=== PATIENT | male | born 1950 | race Caucasian/White ===

== ENCOUNTER 2017-08-11 09:02 | Observation (INO) | payer MEDICARE, SELFPAY ==
[2017-08-11] VITALS (13 sets, daily range): BP systolic 132–177; BP diastolic 73–86; PULSE 38–52; RESP 11–16; TEMP 36.7–37; O2SAT 95–100; BMI 30.8; BMI 30.6
--- NOTE | 2017-08-11 09:15 | EKG12_ITS ---
Test Reason : REPEAT Blood Pressure : / mmHG Vent. Rate : 040 BPM Atrial Rate : 040 BPM P-R Int : 182 ms QRS Dur : 096 ms QT Int : 512 ms P-R-T Axes : 039 007 106 degrees QTc Int : 417 ms Marked sinus bradycardia ST & T wave abnormality, consider lateral ischemia Abnormal ECG Confirmed by LAZ HA, CHEYANNE ([id number]), order editor DONNELL CALVO ([id number]) on 08/12/2017 1:48:17 PM Referred By: KOJO Confirmed By:CHEYANNE NESBITT MD
--- NOTE | 2017-08-11 09:20 | RAD_ITS ---
STUDY: X-RAY CHEST REASON FOR EXAM: Male, 67 years old. Chest pain. TECHNIQUE: Single AP portable view of the chest. COMPARISON: None. FINDINGS: EKG electrodes are seen. The lungs are clear and expanded. There is no demonstrated pleural abnormality. Normal size heart. Normal mediastinum and rick. Normal visualized pulmonary arteries. Normal visualized aortic arch and descending thoracic aorta. Normal visualized thoracic spine. Normal visualized ribs, clavicles, and shoulders. There is no demonstrated abnormality of the visualized soft tissue structures of the upper abdomen. RAD/Chest 1 View (Portable) IMPRESSION: Normal x-ray examination of the chest. Electronically Signed: Christian Taylor MD at 10:08 EST Tel [phone], Service support ,
[2017-08-11] MEDS: Aspirin 81 MG TAB.CHEW 324 MG PO (09:23)
[2017-08-11] MEDS: 0.9% Normal Saline 1,000 ML 150 ML IV ×3 (09:23→23:27)
[2017-08-11 09:28] LABS: Absolute Lymphocyte Count 1.91 X10^3/ul (0.83-4.51); Absolute Neutrophil Count 4.3 X10^3/uL (2.0-7.7); Basophil# 0.02 X10^3/uL; Basophil% 0.3 % (0-1); Eosinophil# 0.61 X10^3/uL; Eosinophils% 7.7 % (0-5); Hematocrit 44.8 % (40-54); Hemoglobin 15.3 g/dl (13.0-16.5); Lymphocyte # 1.91 X10^3/ul (4.0); Lymphocyte % 24.2 % (19-41); Mean Corp Hgb Conc 34.2 g/gl (32-36); Mean Corpuscular Hgb 31.5 pg (27.0-32.0); Mean Corpuscular Volume 92.4 fL (80-94); Mean Platelet Vol. 10.1 fl (6.2-12.0); Monocyte# 1.02 X10^3/uL; Monocyte% 12.9 % (0-10); Neutrophil % 54.6 % (47-70); Platelet Count 254 K/mm3 (150-450); RBC Distribution Width SD 46.7 fl (35.1-43.9); Red Blood Count 4.85 M/mm3 (4.6-6.2); White Blood Count 7.9 K/mm3 (4.4-11.0)
[2017-08-11] MEDS: TICAGRELOR 90 MG TABLET 180 MG PO (09:33)
[2017-08-11 09:36] LABS: POSITIVE COUNT NO; POSITIVE DIFFERENTIAL NO; POSITIVE MORPHOLOGY NO
[2017-08-11 09:38] LABS: Anion Gap 9 (5-15); BUN 23 mg/dL (7-18); BUN/Creat Ratio 24.3 RATIO (10-20); Calcium,Total 8.9 mg/dL (8.5-10.1); Chloride 101 mmol/L (98-107); Creatinine, Serum 0.95 mg/dL (0.70-1.30); EST Glomerular Filtration Rate 84 mL/min (>60); Est Glom Filt Rate - Afr Amer 102 mL/min (>60); Estimated Creatinine Clearance 75.45 ml/min; Glucose 104 mg/dL (74-106); Potassium 4.2 mmol/L (3.5-5.1); Sodium Level 137 mmol/L (136-145)
[2017-08-11] MEDS: Heparin Injection 5,000 UNITS/ML Syringe 4000 UNITS IV (09:49)
--- NOTE | 2017-08-11 10:01 | ED.VISSUMM ---
- ER Visit Summary Date of Service: 08/11/17 Chief Complaint: [Chest pain] History of Present Illness: The patient is a 67 M [presents to the emergency department from Dr. Collazo's office for complaint of chest pain that woke him up from sleep around 2 AM. Patient thought it was indigestion and took Tums and some milk and was able to fall back asleep. Initially his pain was a 9 out of 10. Patient currently rates his pain as a 1 out of 10. Patient was noted to have abnormal EKG changes in his doctor's office this morning therefore was sent to the emergency department. Patient states when the pain initially started he felt short of breath and sweaty. Patient did feel nauseated but not currently. Patient tells me he had a heart catheterization about 5 years ago that showed about a 30% stenosis in 1 of his arteries but no type of intervention was undertaken at that time. She denies any recent travel or surgery.] Physical Examination: [HEENT-PERRLA, EOMI. Cranial nerves II through XII grossly intact. TMs clear. Mucous membranes moist. No adenopathy. Cardiovascular-regular rate and rhythm without murmur or ectopy I am unable to reproduce patient's pain with palpation. Lungs-clear to auscultation, chest wall stable without crepitus or subcu emphysema Abdomen-normoactive bowel sounds, soft, nontender, no rebound or rigidity, no peritoneal signs. Extremities-intact ?4, normal range of motion, normal pulses, atraumatic] Test Results: [EKG obtained on arrival showed a sinus rhythm with a ventricular rate of 46 bpm. Patient had subtle ST elevation in V2 and V3 of less than a millimeter. Patient had flipped T waves in V5, V6, 1, and aVL. The changes are new when compared with prior EKG from 2012 and 2013. CBC with differential was unremarkable. Chemistries unremarkable. Troponin was less than 0.02. Chest x-ray showed nothing acute.] Emergency Department Course and Treatment: [Patient received aspirin in the emergency department as well as sublingual nitroglycerin. I discussed the case with Dr. Ari Lucero who evaluated the EKG and asked that I start patient on heparin IV as well as Brilinta.] Treatment Plan: [Admit for further workup and evaluation. Patient had a sed rate ordered as well.] Disposition: [Admit] Impression: [Chest pain-rule out acute coronary syndrome] This note was generated with [employer] dictation software. It may contain incorrect words, spelling, and punctuation that were not noted in review of the chart prior to signing ED Disposition - Plan for ED Patient: Chief Complaint: Chest Pain Referrals: Les Cisse MD [Primary Care Provider] -
--- NOTE | 2017-08-11 10:19 | NURSING ---
DR SANTY VARMA
--- NOTE | 2017-08-11 10:24 | NURSING ---
109 OBS CP SANTY
[2017-08-11 10:39] LABS: Erythrocyte Sedimentation Rate 21 mm/hr (0-20)
--- NOTE | 2017-08-11 11:27 | ECHOD_ITS ---
Reason For Study: chest pain Procedure This was a 2D Doppler, Color Flow transthoracic echocardiogram. Exam performed portable in patient room. Left Ventricle Mild concentric left ventricular hypertrophy. The estimated ejection fraction is 65 %. No regional wall motion abnormalities noted. Right Ventricle Normal size and thickness. Normal systolic function. Atria The left atrium is severely enlarged. Normal right atrium. Normal atrial septum. Mitral Valve Mild diffuse mitral valve thickening. Mild (1+) eccentric mitral valve insufficiency. Tricuspid Valve Normal tricuspid valve. Trivial tricuspid valve insufficiency. Right ventricular systolic pressure estimated to be 26 mmHg. Aortic Valve Normal aortic valve. Trisinus/trileaflet aortic valve. Pulmonic Valve Normal pulmonic valve. Trivial eccentric pulmonic valve insufficiency. Great Vessels Normal aortic root. Normal arch. Normal inferior vena cava. Inferior vena cava collapse with sniff. Pericardium/Pleural No pericardial effusion. MMode/2D Measurements & Calculations LVIDd: 5.2 cm IVSd: 1.4 cm Ao root diam: 3.2 cm LVIDs: 3.4 cm LVPWd: 1.4 cm LA dimension: 4.9 cm RVDd: 3.0 cm FS: 34.3 % LAV(MOD-bp): 106.6 ml LA A4 area: 31.2 cm2 RA A4 area: 14.9 cm2 LAV(MOD-bp) Indexed: 51.1 ml/m2 LAV(MOD-sp2): 95.2 ml LAV(MOD-sp4): 115.1 ml Doppler Measurements & Calculations MV E max ren: 70.3 cm/sec Lat Peak E' Ren: 8.3 cm/sec Med Peak E' Ren: 6.6 cm/sec MV A max ren: 66.0 cm/sec E/E' lat: 8.5 E/E' med: 10.7 MV E/A: 1.1 Ao V2 max: 170.8 cm/sec LV V1 max: 108.9 cm/sec PA V2 max: 111.3 cm/sec Ao max P.7 mmHg LV V1 max P.7 mmHg Ao V2 mean: 112.6 cm/sec Ao mean P.7 mmHg Ao V2 VTI: 36.6 cm TR max ren: 234.5 cm/sec TR max P.0 mmHg Interpretation Summary Mild concentric left ventricular hypertrophy. The estimated ejection fraction is 65 %. The left atrium is severely enlarged. Mild (1+) eccentric mitral valve insufficiency. Trivial tricuspid valve insufficiency. Right ventricular systolic pressure estimated to be 26 mmHg. There is no comparison study available. Ordering Physician: Ari Lucero Referring Physician: Les Cisse Performed By: Shaina Sepulveda, MT, RVT
--- NOTE | 2017-08-11 11:27 | PCM.CONS.C ---
Problem List (1) Chest pain Status: Acute (2) Abnormal EKG Status: Acute Reason for Consult Date of Consultation: 08/11/17 Reason for Consultation: Abnormal EKG, chest pain History of Present Illness: The patient is a 67 year old M, patient of Dr. Roman, followed by Dr. Harper, who previously underwent a left her catheterization at the [facility] approximately 5 years ago according to the patient, and reportedly had a 30% narrowing in some artery of unknown type. Patient's symptoms at that time were chest burning sensation. Patient remains symptom-free over the last 5 years. He is a nondiabetic, smoke cigars, chews tobacco, and drinks 1 bourbon every night. 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 Patient was doing well up until around 2 AM last night when he developed a substernal chest burning sensation, which was nonradiating with associated diaphoresis and shortness of breath. Patient took a Tums and a glass of milk and his symptoms improved but did not completely resolve. There remained persistent and he went to his primary care doctor this morning around 8 AM. An EKG was performed which showed normal sinus rhythm with subtle anteroseptal ST segment elevation, with lateral T-wave inversion which appear to be new from a previous EKG. He was referred immediately to the [facility] ER where a repeat EKG confirmed the office EKG findings. Patient was given sublingual nitroglycerin and his pain markedly improved. His initial troponin was negative. On further history the patient denies any exertional chest pain, angina, during his activities prior to this. He recently returned from a long car ride approximately 1 week ago traveling around [place]. He does not formally exercise. In the emergency room the patient was given 4 baby aspirin, Brilinta 180 mg ?1, heparin 4000 units ?1. After talking with the patient in the ER, it appears that his pain is epigastric in nature, and has gastritis-like quality. Echo is pending. [] Past Medical History Allergies/Adverse Reactions: Allergies No Known Allergies Allergy (Verified 02/18/17 10:52) Home Medications: Ambulatory Orders Medication Instructions Recorded Hydrochlorothiazide 25 mg PO DAILY 06/13/13 Montelukast [Singulair] 10 mg PO QHS 06/13/13 Nebivolol HCl [Bystolic] 20 mg PO DAILY 06/13/13 Aspirin [Aspirin, Baby] 81 mg PO DAILY@0800 02/18/17 Bisoprolol Fumarate [Zebeta] 10 mg PO DAILY 02/18/17 Naproxen Sodium [Aleve] 220 mg PO DAILY 02/18/17 Pravastatin Sodium [Pravachol] 10 mg PO QHS 02/18/17 Sildenafil Citrate [Sildenafil] 20 mg PO DAILY PRN 02/18/17 Valsartan [Diovan] 320 mg PO DAILY 02/18/17 Gluc/Chondr-MSM#7/C/Swapnil/[place] 2 tab PO DAILY 08/11/17 [Eql Glucosam-Chondro Complx Tb] Nitroglycerin [Nitrostat] 0.4 mg SUBLINGUAL Q5M PRN 08/11/17 Surgical History: no surgical history Smoking Status: Current every day smoker Review of Systems - Review of Systems General: Denies: Fever, Night Sweats, Fatigue Cardiovascular: Reports: Chest Discomfort at Rest, Chest Heaviness, Shortness of Breath at Rest. Denies: Chest Discomfort, Shortness of Breath, Orthopnea, PND, Peripheral Edema, Palpitations, Lightheadedness, Dizziness, Near Syncope, Syncope Respiratory: Denies: Cough, Sputum Production, Hemoptysis Gastrointestinal: Denies: Hematemesis, Hematochezia, Melena Genitourinary: Denies: Dysuria, Hematuria Skin: Denies: Rash Subjectve: Patient laying in bed, no acute distress. Objective: Vital Signs Temp Pulse Resp BP Pulse Ox 98.2 F 40 L 16 133/73 H 99 08/11/17 09:03 08/11/17 09:54 08/11/17 09:54 08/11/17 09:54 08/11/17 09:54 Weight: 207 lb 7.28 oz Body Mass Index (BMI) 30.6 General: Awake, Alert, Oriented x 3 HEENT: PERRL, EOMI, Sclera Non Icteric Neck: Supple, Good ROM, No Lymph Node Enlargement Lungs: Clear to auscultation Cardiovascular: Regular Rhythm, Normal S1, Normal S2, No Murmurs, No Rubs, No Gallops Rhythm: EKG: As above ECHO: Pending Stress Test: Cardiac Cath: PCI: CT Surgery: Holter monitor: EPS: PPM: CXR: Chest CT Scan: Assessment/Plan 1. Chest pain: The patient presents with new onset sub-gastric xiphoid type chest pain, which has gastritis qualities to it. His initial troponin is negative, but his EKG demonstrates normal sinus rhythm with subtle anterolateral ST and T-wave changes. I recommended that he receive baby aspirin ?4, Brilinta 180 mg ?1, and 4000 units of IV heparin in anticipation for possible urgent catheterization. In addition I recommend he be admitted to PCU telemetry floor as he is chest pain-free now. Recommend ruling him out for troponins ?3, and if negative would recommend a walking treadmill echocardiogram tomorrow morning. If this is grossly abnormal, he may require diagnostic coronary angiogram. In addition I recommend that he be started on PPI therapy as he may have gastritis due to his alcohol and tobacco consumption. His symptoms appear to improve with milk and Tums last evening. Is also possible the patient's symptoms may be gallbladder in origin as well. In addition I recommend we obtain a sed rate and at bedtime CRP to determine if patient has pericarditis as a result of inflammation that could explain his symptoms and EKG changes. If the patient's troponins become abnormal, I would not recommend stress testing and would proceed with left her catheterization tomorrow morning. 2. Hyperlipidemia: Recommend obtaining a fasting lipid profile. Given his previous coronary disease he requires LDL reduction. Continue statin based medications. 3. Sinus bradycardia: The patient is on bisoprolol therapy which is appropriate. 4. Discussed with Dr. Cruz. Thank you very much for the opportunity to precipitate in the cardiac care of your patient. Consultation time took place between 10 AM and 10:30 AM. Code Visit Inpatient E&M: 94010 Init Hosp L2
--- NOTE | 2017-08-11 11:35 | CON.PCM_ITS ---
Problem List (1) Chest pain Status: Acute (2) Abnormal EKG Status: Acute Reason for Consult Date of Consultation: 08/11/17 Reason for Consultation: Abnormal EKG, chest pain History of Present Illness: The patient is a 67 year old M, patient of Dr. Roman, followed by Dr. aHrper, who previously underwent a left her catheterization at the [facility] approximately 5 years ago according to the patient, and reportedly had a 30% narrowing in some artery of unknown type. Patient's symptoms at that time were chest burning sensation. Patient remains symptom-free over the last 5 years. He is a nondiabetic, smoke cigars, chews tobacco, and drinks 1 bourbon every night. 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 Patient was doing well up until around 2 AM last night when he developed a substernal chest burning sensation, which was nonradiating with associated diaphoresis and shortness of breath. Patient took a Tums and a glass of milk and his symptoms improved but did not completely resolve. There remained persistent and he went to his primary care doctor this morning around 8 AM. An EKG was performed which showed normal sinus rhythm with subtle anteroseptal ST segment elevation, with lateral T-wave inversion which appear to be new from a previous EKG. He was referred immediately to the [facility] ER where a repeat EKG confirmed the office EKG findings. Patient was given sublingual nitroglycerin and his pain markedly improved. His initial troponin was negative. On further history the patient denies any exertional chest pain, angina, during his activities prior to this. He recently returned from a long car ride approximately 1 week ago traveling around [place]. He does not formally exercise. In the emergency room the patient was given 4 baby aspirin, Brilinta 180 mg ?1, heparin 4000 units ?1. After talking with the patient in the ER, it appears that his pain is epigastric in nature, and has gastritis- like quality. Echo is pending. [] Past Medical History Allergies/Adverse Reactions: Allergies No Known Allergies Allergy (Verified 02/18/17 10:52) Home Medications: Ambulatory Orders Medication Instructions Recorded Hydrochlorothiazide 25 mg PO DAILY 06/13/13 Montelukast [Singulair] 10 mg PO QHS 06/13/13 Nebivolol HCl [Bystolic] 20 mg PO DAILY 06/13/13 Aspirin [Aspirin, Baby] 81 mg PO DAILY@0800 02/18/17 Bisoprolol Fumarate [Zebeta] 10 mg PO DAILY 02/18/17 Naproxen Sodium [Aleve] 220 mg PO DAILY 02/18/17 Pravastatin Sodium [Pravachol] 10 mg PO QHS 02/18/17 Sildenafil Citrate [Sildenafil] 20 mg PO DAILY PRN 02/18/17 Valsartan [Diovan] 320 mg PO DAILY 02/18/17 Gluc/Chondr-MSM#7/C/Swapnil/[place] 2 tab PO DAILY 08/11/17 [Eql Glucosam-Chondro Complx Tb] Nitroglycerin [Nitrostat] 0.4 mg SUBLINGUAL Q5M PRN 08/11/17 Surgical History: no surgical history Smoking Status: Current every day smoker Review of Systems - Review of Systems General: Denies: Fever, Night Sweats, Fatigue Cardiovascular: Reports: Chest Discomfort at Rest, Chest Heaviness, Shortness of Breath at Rest. Denies: Chest Discomfort, Shortness of Breath, Orthopnea, PND, Peripheral Edema, Palpitations, Lightheadedness, Dizziness, Near Syncope, Syncope Respiratory: Denies: Cough, Sputum Production, Hemoptysis Gastrointestinal: Denies: Hematemesis, Hematochezia, Melena Genitourinary: Denies: Dysuria, Hematuria Skin: Denies: Rash Subjectve: Patient laying in bed, no acute distress. Objective: Vital Signs Temp Pulse Resp BP Pulse Ox 98.2 F 40 L 16 133/73 H 99 08/11/17 09:03 08/11/17 09:54 08/11/17 09:54 08/11/17 09:54 08/11/17 09:54 Weight: 207 lb 7.28 oz Body Mass Index (BMI) 30.6 General: Awake, Alert, Oriented x 3 HEENT: PERRL, EOMI, Sclera Non Icteric Neck: Supple, Good ROM, No Lymph Node Enlargement Lungs: Clear to auscultation Cardiovascular: Regular Rhythm, Normal S1, Normal S2, No Murmurs, No Rubs, No Gallops Rhythm: EKG: As above ECHO: Pending Stress Test: Cardiac Cath: PCI: CT Surgery: Holter monitor: EPS: PPM: CXR: Chest CT Scan: Assessment/Plan 1. Chest pain: The patient presents with new onset sub-gastric xiphoid type chest pain, which has gastritis qualities to it. His initial troponin is negative, but his EKG demonstrates normal sinus rhythm with subtle anterolateral ST and T-wave changes. I recommended that he receive baby aspirin ?4, Brilinta 180 mg ?1, and 4000 units of IV heparin in anticipation for possible urgent catheterization. In addition I recommend he be admitted to PCU telemetry floor as he is chest pain-free now. Recommend ruling him out for troponins ?3, and if negative would recommend a walking treadmill echocardiogram tomorrow morning. If this is grossly abnormal, he may require diagnostic coronary angiogram. In addition I recommend that he be started on PPI therapy as he may have gastritis due to his alcohol and tobacco consumption. His symptoms appear to improve with milk and Tums last evening. Is also possible the patient's symptoms may be gallbladder in origin as well. In addition I recommend we obtain a sed rate and at bedtime CRP to determine if patient has pericarditis as a result of inflammation that could explain his symptoms and EKG changes. If the patient's troponins become abnormal, I would not recommend stress testing and would proceed with left her catheterization tomorrow morning. 2. Hyperlipidemia: Recommend obtaining a fasting lipid profile. Given his previous coronary disease he requires LDL reduction. Continue statin based medications. 3. Sinus bradycardia: The patient is on bisoprolol therapy which is appropriate. 4. Discussed with Dr. Cruz. Thank you very much for the opportunity to precipitate in the cardiac care of your patient. Consultation time took place between 10 AM and 10:30 AM. Code Visit Inpatient E&M: 98027 Init Hosp L2
--- NOTE | 2017-08-11 12:19 | PCM.HP.STD ---
Problem List (1) Chest pain Status: Acute (2) Abnormal EKG Status: Acute History of Present Illness Date of Admission: 08/11/17 Chief Complaint: Chest Pain Jeramy Jefferson is a 67 M presented to the emergency room from his PCPs office due to chest pain . He said woke up around 2 AM due to chest discomfort and gastroesophageal reflux and took times in mouth with improvement. He saw his primary care doctor this morning and EKG showed some changes and the patient was recommended to go to the emergency room for evaluation. Emergency room his troponin is normal his EKG showed normal sinus rhythm with subtle anteroseptal ST segment elevation, with lateral T-wave inversion which appear to be new from a his previous EKG.Dr Lucero of cardiology saw and evaluated the patient in the emergency room and recommended placing him in the the PCU to rule out ACS and further ischemic workup. Past Medical History Allergies No Known Allergies Allergy (Verified 02/18/17 10:52) Home Medications: Ambulatory Orders Medication Instructions Recorded Hydrochlorothiazide 25 mg PO DAILY 06/13/13 Montelukast [Singulair] 10 mg PO QHS 06/13/13 Nebivolol HCl [Bystolic] 20 mg PO DAILY 06/13/13 Aspirin [Aspirin, Baby] 81 mg PO DAILY@0800 02/18/17 Bisoprolol Fumarate [Zebeta] 10 mg PO DAILY 02/18/17 Naproxen Sodium [Aleve] 220 mg PO DAILY 02/18/17 Pravastatin Sodium [Pravachol] 10 mg PO QHS 02/18/17 Sildenafil Citrate [Sildenafil] 20 mg PO DAILY PRN 02/18/17 Valsartan [Diovan] 320 mg PO DAILY 02/18/17 Gluc/Chondr-MSM#7/C/Swapnil/[place] 2 tab PO DAILY 08/11/17 [Eql Glucosam-Chondro Complx Tb] Nitroglycerin [Nitrostat] 0.4 mg SUBLINGUAL Q5M PRN 08/11/17 Surgical History: no surgical history Smoking Status: Current every day smoker - *Family History Maternal History Items: No pertinent history Review of Systems Comment: All Systems were reviewed with pertinent positives mentioned in the HPI above. VTE Information - Inpt Only VTE Present on Admission: No VTE Mechan Device Prophylaxis: SCD's VTE Pharm Prophylaxis ordered?: Yes Patient Problems: Active and Suspected Problems Chest pain (Acute) Abnormal EKG (Acute) - Physical Exam General: Alert, Oriented x3 HEENT: Atraumatic Oral: Moist Mucosa Neck: Supple, No JVD Lungs: Clear to auscultation Cardiovascular: Regular rate, Normal S1, Normal S2 Abdomen: Bowel Sounds Present, Soft Extremities: No clubbing, No edema Psych/Mental Status: Normal Affect Vital Signs Temp Pulse Resp BP Pulse Ox 98.6 F 44 L 16 142/76 H 100 08/11/17 11:30 08/11/17 11:30 08/11/17 11:30 08/11/17 11:30 08/11/17 11:30 Oxygen Flow Rate 2 Oxygen Delivery Method Nasal Cannula Weight: 94.1 kg Body Mass Index (BMI) 30.6 Intake and Output for Last 24 Hours 08/09/17 08/10/17 08/11/17 23:59 23:59 23:59 Intake Total 480 / 480 Balance 480 / 480 Assessment/Plan Active and Suspected Problems Chest pain (Acute) Abnormal EKG (Acute) 1. Chest pain; will obtain serial cardiac enzymes and EKGs to rule out ACS, assuming negative enzymes the patient will undergo stress test in the morning to rule out ischemia. 2. Dyspepsia; we will place him on PPI, if coronary ischemia is ruled out the patient would need to undergo EGD as an outpatient. 3. Essential hypertension; we will resume his antihypertensive therapy. 4. Dyslipidemia; he is on a statin. 5. DVT prophylaxis with SCDs. Code Visit OBSV E&M: 41091 Initial observation care L3
[2017-08-11 15:27] LABS: CRP 3.02 mg/L (0.0-3.0)
--- NOTE | 2017-08-11 16:48 | STE_ITS ---
Reason For Study: Chest Pain Stress Results Protocol: Jose Roberto Protocol Maximum Predicted HR: 153 bpm Target HR: 130 bpm% Max imum Predicted HR: 73 % DurationHeart Rate Stage (mm:ss) (bpm) BP Baseline 54 168/90 Jose Roberto Protocol Stage I 3:00 85 168/88 Jose Roberto Protocol Stage II 3:00 10 3 198/96 Jose Roberto Protocol Stage III 1:00 11 2 / Recovery 66 152/94 Stress Duration: 7:00 mm:ss Maximum Stress HR: 112 bpmM ETS: 10 Baseline Echocardiogram Findings The estimated ejection fraction is 65 %. Stress Echo Wall motion Data Resting WMIntermediate WMStress WM Resting Wall Motion Wall Motion Stress No regional wall motion No regional wall motion abnormalities noted. abnormalities noted. EKG Data Normal intervals are noted. The patient exercised according to the regular Jose Roberto protocol for a total duration of 7:00. The maximum heart rate attained was 113 beats per minute. This was 73% of maximum predicted heart rate. The patient exercised into stage 3 of the Jose Roberto protocol. During stress, there were no ST or T wave changes noted to suggest ischemia. No clinical angina was noted. Interpretation Summary The estimated ejection fraction is 65 %. Normal adequate treadmill echocardiogram. Negative for ischemia by EKG and echocardiographic criteria. No anginal symptoms noted. Hypertensive blood pressure response to exercise. Although the patient did not reach target heart rate, his rate pressure product was adequate for this testing. Final LVEF is 75%, average exercise capacity for age. Test terminated due to dyspnea. No complications. Ordering Physician: Ari Lucero Referring Physician: Ari Lucero MD Performed By: Elisabeth Barry RDCS
[2017-08-11] MEDS: Montelukast 10 MG Tablet PO (21:11)
[2017-08-12] VITALS (10 sets, daily range): BP systolic 133–188; BP diastolic 71–91; PULSE 49–59; RESP 14–18; TEMP 36.7–36.9; O2SAT 94–98
--- NOTE | 2017-08-12 05:26 | EKG12_ITS ---
Test Reason : MORNING EKG Blood Pressure : / mmHG Vent. Rate : 051 BPM Atrial Rate : 051 BPM P-R Int : 186 ms QRS Dur : 092 ms QT Int : 456 ms P-R-T Axes : 055 032 094 degrees QTc Int : 420 ms Sinus bradycardia Nonspecific ST and T wave abnormality Abnormal ECG Confirmed by DILLON MAN ([id number]), news editor DONNELL CALVO ([id number]) on 08/18/2017 2:20:18 PM Referred By: SANTY Confirmed By:DILLON MAN
[2017-08-12 05:33] LABS: Absolute Lymphocyte Count 1.94 X10^3/ul (0.83-4.51); Absolute Neutrophil Count 3.3 X10^3/uL (2.0-7.7); Basophil# 0.02 X10^3/uL; Basophil% 0.3 % (0-1); Eosinophil# 0.61 X10^3/uL; Eosinophils% 9.3 % (0-5); Hematocrit 40.6 % (40-54); Hemoglobin 13.7 g/dl (13.0-16.5); Lymphocyte # 1.94 X10^3/ul (4.0); Lymphocyte % 29.4 % (19-41); Mean Corp Hgb Conc 33.7 g/gl (32-36); Mean Corpuscular Hgb 31.3 pg (27.0-32.0); Mean Corpuscular Volume 92.7 fL (80-94); Mean Platelet Vol. 10.3 fl (6.2-12.0); Monocyte# 0.71 X10^3/uL; Monocyte% 10.8 % (0-10); Platelet Count 197 K/mm3 (150-450); RBC Distribution Width SD 47.4 fl (35.1-43.9); Red Blood Count 4.38 M/mm3 (4.6-6.2); White Blood Count 6.6 K/mm3 (4.4-11.0)
[2017-08-12 05:41] LABS: POSITIVE COUNT NO; POSITIVE DIFFERENTIAL NO; POSITIVE MORPHOLOGY NO
[2017-08-12 05:45] LABS: Anion Gap 5 (5-15); BUN 16 mg/dL (7-18); Calcium,Total 8.1 mg/dL (8.5-10.1); Chloride 107 mmol/L (98-107); Creatinine, Serum 0.76 mg/dL (0.70-1.30); EST Glomerular Filtration Rate 108 mL/min (>60); Est Glom Filt Rate - Afr Amer 131 mL/min (>60); Estimated Creatinine Clearance 71.68 ml/min; Glucose 96 mg/dL (74-106); Sodium Level 140 mmol/L (136-145)
[2017-08-12 05:48] LABS: Partial Thromboplast Time 29.4 Seconds (24.1-36.2)
[2017-08-12] MEDS: 0.9% Normal Saline 1,000 ML 150 ML IV (06:03)
[2017-08-12] MEDS: Aspirin 81 MG TAB.CHEW PO (06:09)
[2017-08-12 06:10] LABS: International Normalized Ratio 1.3; Prothrombin Time (Protime)PT. 15.2 SECONDS (11.7-14.9)
[2017-08-12] MEDS: Pantoprazole Sodium 40 MG Tablet PO (10:52)
[2017-08-12] MEDS: hydroCHLOROthiazide 25 MG Tablet PO (10:52)
[2017-08-12] MEDS: Bisoprolol Fumarate 5 MG Tablet 10 MG PO (10:53)
[2017-08-12] MEDS: Acetaminophen 325 MG Tablet 650 MG PO (14:59)
--- NOTE | 2017-08-12 15:22 | DCINST_ITS ---
- Discharge Diagnoses Current Active Problems: Current Active and Chronic Problems Chest pain (Acute) Abnormal EKG (Acute) You will use the following diet at home:: Regular Discharge Activity: Return to Normal Activity Instructions: ED Chest Pain NonCardiac Allergies/Adverse Reactions: Allergies No Known Allergies Allergy (Verified 02/18/17 10:52) Medications to take at Discharge Hydrochlorothiazide 25 mg PO DAILY 06/13/13 Montelukast [Singulair] 10 mg PO QHS 06/13/13 Aspirin [Aspirin, Baby] 81 mg PO DAILY@0800 02/18/17 Bisoprolol Fumarate [Zebeta (Beta Juan Alberto)] 10 mg PO DAILY 02/18/17 Pravastatin Sodium [Pravachol] 10 mg PO QHS 02/18/17 Sildenafil Citrate [Sildenafil] 20 mg PO DAILY PRN 02/18/17 Valsartan [Diovan] 320 mg PO DAILY 02/18/17 Gluc/Chondr-MSM#7/C/Swapnil/[place] [Eql Glucosam-Chondro Complx Tb] 2 tab PO DAILY 08/11/17 Nitroglycerin [Nitrostat] 0.4 mg SUBLINGUAL Q5M PRN 08/11/17 Otc Nitric Strength 1 tab PO DAILY PRN PRN 08/11/17 Testo Max Hd -Otc 1 tab PO DAILY 08/11/17 Bisoprolol Fumarate [Zebeta (Beta Juan Alberto)] 10 mg PO DAILY #30 tab 08/12/17 Pantoprazole Sodium [Protonix] 40 mg PO DAILY #30 tab 08/12/17 The following prescriptions were given: Bisoprolol Fumarate [Zebeta (Beta Juan Alberto)] 10 mg PO DAILY #30 tab Pantoprazole Sodium [Protonix] 40 mg PO DAILY #30 tab Primary Care Physician: Les Cisse MD [Primary Care Provider] - Within 2 Weeks Proposed Discharge Date: 08/12/17
--- NOTE | 2017-08-12 15:23 | PCM.DC.SUM ---
Discharge Date and Diagnosis - Problem List Patient Problems: Active and Suspected Problems Chest pain (Acute) Abnormal EKG (Acute) Date of Admission: 08/11/17 Date of Discharge: 08/12/17 - Primary Discharge Diagnosis Active and Suspected Problems Chest pain (Acute) Abnormal EKG (Acute) Hospital Course and Treatment Summary of Care Provided: Jeramy Jefferson is a 67 M presented to the emergency room from his PCPs office due to chest pain . He said woke up around 2 AM due to chest discomfort and gastroesophageal reflux and took times in mouth with improvement. He saw his primary care doctor this morning and EKG showed some changes and the patient was recommended to go to the emergency room for evaluation. Emergency room his troponin is normal his EKG showed normal sinus rhythm with subtle anteroseptal ST segment elevation, with lateral T-wave inversion which appear to be new from a his previous EKG.Dr Lucero of cardiology saw and evaluated the patient in the emergency room and recommended placing him in the the PCU to rule out ACS and further ischemic workup. Had negative troponin and went ahead and underwent a stress test that was negative for ischemia. He was bradycardic on his home dose of beta blockers and the dose has been decreased. His symptoms are consistent with GI etiology and he was placed on Protonix with improvement , he is recommended to follow with his primary care physician for possible EGD as an outpatient. physical exam at the time of discharge; vital signs were stable. He was alert and oriented to time place and person. He did not appear to be any form of distress. S1 and S2 heard no murmur or gallop Lung exam was clear to auscultation with no adventitious sounds. Abdomen was soft nontender with normal bowel sounds. extremity exam did not reveal any edema, palpable pulses bilaterally. Neurologic exam was grossly intact. Discharge Diet: No Restrictions Discharge Activity: Return to Normal Activity Home Medications: Medications to take at Discharge Hydrochlorothiazide 25 mg PO DAILY 06/13/13 Montelukast [Singulair] 10 mg PO QHS 06/13/13 Aspirin [Aspirin, Baby] 81 mg PO DAILY@0800 02/18/17 Bisoprolol Fumarate [Zebeta (Beta Juan Alberto)] 10 mg PO DAILY 02/18/17 Pravastatin Sodium [Pravachol] 10 mg PO QHS 02/18/17 Sildenafil Citrate [Sildenafil] 20 mg PO DAILY PRN 08/30/17 Valsartan [Diovan] 320 mg PO DAILY 02/18/17 Gluc/Chondr-MSM#7/C/Swapnil/[place] [Eql Glucosam-Chondro Complx Tb] 2 tab PO DAILY 08/11/17 Nitroglycerin [Nitrostat] 0.4 mg SUBLINGUAL Q5M PRN 08/11/17 Otc Nitric Strength 1 tab PO DAILY PRN PRN 08/11/17 Testo Max Hd -Otc 1 tab PO DAILY 08/11/17 Bisoprolol Fumarate [Zebeta (Beta Juan Alberto)] 10 mg PO DAILY #30 tab 08/12/17 Pantoprazole Sodium [Protonix] 40 mg PO DAILY #30 tab 08/12/17 Following Prescrptions Were Given to Patient: Bisoprolol Fumarate [Zebeta (Beta Juan Alberto)] 10 mg PO DAILY #30 tab Pantoprazole Sodium [Protonix] 40 mg PO DAILY #30 tab Primary Care Physician: Les Cisse MD [Primary Care Provider] - Within 2 Weeks Patient Instructions: ED Chest Pain NonCardiac Disposition: Home Patient Condition:: Good Meaningful Use Info Meaningful Use Diagnoses (Choose all that apply): None applicable Code Visit OBSV E&M: 25338 Observation care discharge
--- NOTE | 2017-08-12 15:55 | PN.CARD_ITS ---
Subjectve: Patient doing well, no further chest pain. Telemetry showed sinus bradycardia. Troponins negative. Echocardiogram shows normal LV function. Stress test negative. Objective: Vital Signs Temp Pulse Resp BP Pulse Ox 98.5 F 49 L 14 188/91 H 97 08/12/17 15:30 08/12/17 15:30 08/12/17 15:30 08/12/17 15:30 08/12/17 15:30 Oxygen Flow Rate 2 Oxygen Delivery Method Room Air Weight: 207 lb 7.28 oz Body Mass Index (BMI) 30.6 Intake and Output for Last 24 Hours 08/10/17 08/11/17 08/12/17 23:59 23:59 23:59 Intake Total 2548 / 2548 1541 / 1541 Balance 2548 / 2548 1541 / 1541 General: Awake, Alert, Oriented x 3 HEENT: PERRL, EOMI, Sclera Non Icteric Neck: Supple, Good ROM, No Lymph Node Enlargement Lungs: Clear to auscultation Cardiovascular: Regular Rhythm, Normal S1, Normal S2, No Murmurs, No Rubs, No Gallops Vascular: No Carotid Bruits, Normal Femoral Pulses, Normal Radial Pulses, Normal Dorsalis Pedal Pulse, Normal Posterior Tibial Pulses Abdomen: Bowel Sounds Present, Soft, Non Tender, No HSM, No Organomegaly Extremities: No Cyanosis, No Clubbing, No edema Neurological: No Focal Motor or Sensory Deficit 08/11/17 17:15: Troponin I < 0.02 08/11/17 23:33: Troponin I < 0.02 08/12/17 05:00: WBC 6.6, RBC 4.38 L, Hgb 13.7, Hct 40.6, MCV 92.7, MCH 31.3, MCHC 33.7, RDW 14.0, RDW Differential 47.4 H, Plt Count 197, MPV 10.3, Immature Gran % (Auto) 0.200, Neut % (Auto) 50.0, Lymph % (Auto) 29.4, [place] % (Auto) 10.8 H, Eos % (Auto) 9.3 H, Baso % (Auto) 0.3, Absolute Neuts (auto) 3.3, Total Counted Not Reportable 08/12/17 05:00: PT 15.2 H, INR 1.3, APTT 29.4 08/12/17 05:00: Sodium 140, Potassium 4.0, Chloride 107, Carbon Dioxide 28.0, Anion Gap 5, BUN 16, Creatinine 0.76, Est GFR (MDRD) Af Amer 131, Est GFR (MDRD ) Non-Af 108, BUN/Creatinine Ratio 21.0 H, Glucose 96, Calcium 8.1 L Rhythm: EKG: ECHO: Stress Test: Cardiac Cath: PCI: CT Surgery: Holter monitor: EPS: PPM: CXR: Chest CT Scan: Assessment/Plan 1. Chest pain: Patient is ruled out for myocardial infarction, and undergone a treadmill echocardiogram which was negative for inducible ischemia. His 2D echo with Doppler also shows normal LV function. It appears that his chest pain is noncardiac in nature and may be gastritis due to his copious amount of alcohol drinking. Would recommend discontinuation of alcohol, placement of PPI going forward, and continued antihypertensive medications with bisoprolol, HCTZ , and valsartan. Would recommend continuing baby aspirin going forward for primary prophylaxis. Would not recommend adjustment of medications until after the patient has been off alcohol for at least 2 weeks time. He will take his blood pressure twice a day for the next 2 weeks and report to our office in 2 weeks time for a blood pressure check. If at that time his blood pressure still elevated I would consider adding amlodipine or switching him from bisoprolol to Coreg. I instructed the patient and his that should he have recurrent chest pain symptoms that have a low threshold for diagnostic coronary angiogram despite his negative stress test. 2. Hyperlipidemia: Recommend obtaining a fasting lipid profile. Given his previous coronary disease he requires LDL reduction. Continue statin based medications. 3. Sinus bradycardia: The patient is on bisoprolol therapy which is appropriate. 4. Patient may be discharged home. He will follow-up with me going forward in 4-6 weeks time. Code Visit Inpatient E&M: 58156 Subs Hosp L2
== END 2017-08-12 15:21 | disposition home or self-care (01) ==
LOC: ED 09:40 → PCU 10:25
PROVIDERS: Internal Medicine Cardiovascular Disease; Admitting Provider Internal Medicine; Emergency Provider Emergency Medicine; Family Provider Family Medicine; PCP Family Medicine; Visit Provider Internal Medicine
DX: R07.89 Other chest pain (principal); R94.31 Abnormal electrocardiogram [ECG] [EKG]; F17.220 Nicotine dependence, chewing tobacco, uncomplicated; R20.8 Other disturbances of skin sensation; R00.1 Bradycardia, unspecified; E78.5 Hyperlipidemia, unspecified; K21.9 Gastro-esophageal reflux disease without esophagitis; R06.02 Shortness of breath; Z79.899 Other long term (current) drug therapy; Z79.82 Long term (current) use of aspirin
CPT/HCPCS: 36415; 71045; 80048; 84484; 85025; 85610; 85652; 85730; 86140; 93005; 93017; 93306; 93350; 96361; 96374; 96375; 99218; 99285; J7030; A4216; G0378

== ENCOUNTER 2018-04-11 18:55 | Emergency (ER) | payer MEDICARE, SELFPAY ==
[2018-04-11 18:56] VITALS: BP 140/79; PULSE 56; RESP 16; TEMP 36.8; O2SAT 97; BMI 31.6
--- NOTE | 2018-04-11 19:28 | ED.DCSUM_ITS ---
- ER Visit Summary Date of Service: 04/11/18 Chief Complaint: Left knee swelling History of Present Illness: The patient is a 67 M who had a left anterior hip replacement performed on the by Dr. Bella at [facility]. Patient noted swelling around his left knee today and is concerned about a blood clot. He is currently taking aspirin, 81 mg twice daily. He denies chest pain or shortness of breath. Physical Examination: Vital signs are unremarkable. Patient sitting upright in bed no acute distress. Head neck examination is normal. Heart is regular rate and rhythm. Lung sounds are clear. Left lower extremity examination reveals left hip incision to have dressing inta ct. No surrounding sign of infection. He has mild edema over the anterior left knee more consistent with a small joint effusion or bursitis. There is no erythema or warmth. He has strong distal pulses. There is no calf tenderness. There is no palpable cord. Test Results: [] Emergency Department Course and Treatment: Patient was discussed with , on-call for Dr. Bella. Patient will be given a dose of Lovenox tonight and will return tomorrow for an ultrasound of his leg. Patient is to call Dr. Bella with his results and may need to be seen in the office this week. Treatment Plan: [] Disposition: Discharge Impression: Left knee edema status post hip replacement This note was generated with [employer] dictation software. It may contain incorrect words, spelling, and punctuation that were not noted in review of the chart prior to signing ED Disposition - Plan for ED Patient: Chief Complaint: Lower Extremity Injury Referrals: Les Cisse MD [Primary Care Provider] -
--- NOTE | 2018-04-11 19:28 | ED.DEP ---
ED Disposition - Plan for ED Patient: Disposition: Home or Assisted Living Chief Complaint: Lower Extremity Injury Instructions: ED Leg Swelling Unilateral Additional Instructions: You will return tomorrow for an outpatient ultrasound of your leg to rule-out a blood clot. Please call Dr Bella tomorrow with these results. You may need to be seen in the office this week.
[2018-04-11] MEDS: Enoxaparin 100 MG/ML Syringe 90 MG SC (19:34)
== END 2018-04-11 19:45 | disposition home or self-care (01) ==
PROVIDERS: Emergency Provider Emergency Medicine; Family Provider Family Medicine; PCP Family Medicine
DX: R60.0 Localized edema (principal); Z96.642 Presence of left artificial hip joint; Z79.82 Long term (current) use of aspirin; K21.9 Gastro-esophageal reflux disease without esophagitis; E78.00 Pure hypercholesterolemia, unspecified; R00.1 Bradycardia, unspecified; Z72.0 Tobacco use; Z79.51 Long term (current) use of inhaled steroids; Z79.899 Other long term (current) drug therapy
CPT/HCPCS: 96372; 99283

== ENCOUNTER → 2018-04-12 11:01 | Outpatient (CLI) | payer MEDICARE, SELFPAY ==
--- NOTE | 2018-04-12 11:06 | VDLE_ITS ---
[id number] 203315.001 VL^VDUL^Venous Duplex US- Unilateral [id number] TAG_START [facility] Venous Doppler [address] [place] [address] Ordering Physician: Kelly Philippe TAG_ENDED TAG_START Name: LADI LOBO Study Date: 04/12/2018 11:19 AM Patient Location: [facility] : 1950 Gender: Male Age: 67 yrs Ethnicity: C TAG_ENDED Reason For Study: LEG SWELLING Procedure LEFT Exam performed in department. GSV is normal. A preliminary report was called and/or faxed CFV is compressible, spontaneous, phasic, to Dr. Bella. competent, and demonstrates normal augmentation. FV is compressible, spontaneous, phasic, competent and demonstrates normal augmentation. POP V is compressible, spontaneous, phasic, competent and demonstrates normal augmentation. T/P Trunk is compressible. PTV is compressible. LT PerV is compressible. <> Interpretation Summary Deep veins of the left lower extremity are patent and compressible segmentally. There is no evidence of left lower extremity deep vein thrombosis. Valvular competence appears intact within the proximal deep venous system on the left . The left greater saphenous vein appears patent and compressible segmentally. TAG_START TAG_ENDED Ordering Physician: Kelly Philippe Referring Physician: Les Cisse Performed By: Venita Giles RVT
== END ==
PROVIDERS: Family Provider Family Medicine; PCP Family Medicine; Referring Provider Emergency Medicine; Visit Provider Emergency Medicine
DX: R60.0 Localized edema (principal)
CPT/HCPCS: 93971

== ENCOUNTER → 2019-07-26 | Outpatient (CLI) | payer MEDICARE, SELFPAY ==
[2019-01-20 14:39] VITALS: BMI 35.2
[2019-07-26 11:33] LABS: AST(SGOT) 40 U/L (15-37); Alanine Aminotransfer ALT/SGPT 62 U/L (16-61); Albumin, Serum 3.6 g/dL (3.2-5.0); Alkaline Phosphatase 71 U/L (45-117); Bilirubin, Direct 0.21 mg/dL (0.00-0.30); Cholesterol 175 mg/dL (200); Globulin 3.6 g/dL (2.2-4.2); High Density Lipoprotein 47 mg/dL; Protein, Total 7.2 g/dL (6.4-8.2); Triglycerides 146 mg/dL; Very Low Density Lipoprotein 29 mg/dL (5-40)
== END | disposition home or self-care (01) ==
PROVIDERS: PCP Family Medicine; Referring Provider Internal Medicine Cardiovascular Disease; Visit Provider Internal Medicine Cardiovascular Disease
DX: E78.5 Hyperlipidemia, unspecified (principal)
CPT/HCPCS: 36415; 80061; 80076

== ENCOUNTER → 2021-02-06 13:46 | Outpatient (CLI) | payer MEDICARE, SELFPAY ==
[2020-03-13 11:54] VITALS: BMI 34.2
--- NOTE | 2021-02-06 13:50 | ECHOD_ITS ---
Reason For Study: Mitral regurgitation Procedure This was a 2D Doppler, Color Flow transthoracic echocardiogram. Exam performed in department. Left Ventricle Normal LV size. The estimated ejection fraction is 60-65 %. There is evidence of diastolic dysfunction. No regional wall motion abnormalities noted. Right Ventricle Normal RV size. Normal systolic function. Atria The left atrium is severely enlarged. Normal right atrium. No doppler evidence for ASD. Mitral Valve There is no mitral valve stenosis. Mild (1+) mitral valve insufficiency. Tricuspid Valve There is no tricuspid stenosis. Unable to estimate RV systolic pressure due to inadequate jet, pulmonary artery pressure probably normal. Aortic Valve Trisinus/trileaflet aortic valve. There is no aortic stenosis. No aortic valve insufficiency. Pulmonic Valve There is no pulmonic valvular stenosis. Trivial pulmonic valve insufficiency. Great Vessels Normal aortic root. Pericardium/Pleural No pericardial effusion. MMode/2D Measurements & Calculations LVIDd: 4.9 cm IVSd: 1.2 cm Ao root diam: 3.3 cm LVIDs: 2.8 cm LVPWd: 1.2 cm RVDd: 3.4 cm FS: 43.3 % LAV(MOD-bp): 95.3 ml LVAd ap4: 31.9 cm2 SV(MOD-sp4): 62.6 ml LAV(MOD-bp) Indexed: 45.7 ml/m2 LVLd ap4: 8.4 cm LAV(MOD-sp2): 98.0 ml EDV(MOD-sp4): 100.6 ml LAV(MOD-sp4): 85.9 ml EDV(sp4-el): 102.2 ml LVAs ap4: 17.6 cm2 LVLs ap4: 7.1 cm ESV(MOD-sp4): 38.0 ml ESV(sp4-el): 37.4 ml EF(MOD-sp4): 62.2 % EF(sp4-el): 63.4 % SV(sp4-el): 64.8 ml LA A4 area: 26.2 cm2 LA dimension(2D): 4.8 cm RA A4 area: 18.1 cm2 Doppler Measurements & Calculations MV E max ren: 70.2 cm/sec Lat Peak E' Ren: 6.7 cm/sec Med Peak E' Ren: 4.8 cm/sec MV A max ren: 72.4 cm/sec E/E' lat: 10.5 E/E' med: 14.7 MV E/A: 0.97 Ao V2 max: 169.7 cm/sec LV V1 max: 113.5 cm/sec PA V2 max: 116.3 cm/sec Ao max P.5 mmHg LV V1 max P.2 mmHg ECHO/Echo Complete Interpretation Summary The estimated ejection fraction is 60-65 %. There is evidence of diastolic dysfunction. The left atrium is severely enlarged. Mild (1+) mitral valve insufficiency. Ordering Physician: Shannan Astorga Referring Physician: Les Cisse Performed By: Elisabeth Barry RDCS
== END ==
PROVIDERS: PCP Family Medicine; Referring Provider Specialist; Visit Provider Specialist
DX: R94.31 Abnormal electrocardiogram [ECG] [EKG] (principal)
CPT/HCPCS: 93306

== ENCOUNTER → 2022-06-03 | Outpatient (CLI) | payer MEDICARE, SELFPAY ==
--- NOTE | 2022-06-03 08:06 | MRI_ITS ---
STUDY: MRI BRAIN WITH AND WITHOUT CONTRAST (ATTENTION INTERNAL AUDITORY CANALS - I.A.C.''s) REASON FOR EXAM: Male, 72 years old. L SUDDEN TINNITUS x 1 MONTH TECHNIQUE: Standardized multiplanar fat and water weighted pulse sequences were obtained. IV 19ml Clariscan was administered for the contrast portion of the examination. COMPARISON: None. FINDINGS: No diffusion restriction throughout the brain parenchyma. No focal signal abnormalities throughout the brain parenchyma in all pulse sequences. Normal bilateral temporal bones. Normal bilateral internal auditory canals. There is no demonstrated intracanalicular or cisternal vestibular schwannoma (acoustic neuroma). There is no enhancement of the bilateral VIIth or VIIIth cranial nerves. Normal bilateral cochlea, vestibules and semicircular canals. Normal size of the ventricles and extra-axial spaces for the patient''s age. Few and small nonspecific subcortical white matter T2 FLAIR hyperintensity foci in the frontal lobes are presumably secondary to microvascular disease. No mass effects and no midline shift. Normal bilateral basal ganglia. Normal thalami. Normal flow voids within the major intracranial circulation suggesting patency by spin echo criteria. Normal venous enhancement. There is no enhancing intra-axial or extra-axial abnormality. There is no extra-axial fluid accumulation. Normal sella turcica, pituitary gland, infundibular stalk, optic chiasm and hypothalamus. Normal tectal plate and pineal gland. Normal midbrain, luana and medulla. Normal cerebellum. Normal basal cisterns. No demonstrated orbital abnormality, within the constraints of a routine brain study. Normal visualized paranasal sinuses. Normal calvarium and skull base. Normal visualized soft tissue structures. Normal visualized upper cervical spine. MRI/Brain W/WO Contrast IMPRESSION: 1. Normal unenhanced and enhanced MRI of the bilateral internal auditory canals (I.A.C''s). 2. Few small chronic white matter ischemic changes in the frontal lobes. COMMENT: If left tinnitus is pulsatile and dural AV fistula is a clinical consideration, cerebral arteriogram with bilateral external carotid arteriogram will be more helpful for further evaluation. Electronically Signed: Serafin Nix MD at 13:02 EST ,
== END | disposition home or self-care (01) ==
LOC: MRI 07:55
PROVIDERS: PCP Family Medicine; Referring Provider Otolaryngology; Visit Provider Otolaryngology
DX: H93.12 Tinnitus, left ear (principal); H90.42 Sensorineural hearing loss, unilateral, left ear, with unrestricted hearing on the contralateral side
CPT/HCPCS: 70553; A9575

== ENCOUNTER 2022-10-17 11:27 | Observation (INO) | payer MEDICARE, SELFPAY ==
[2022-10-17] VITALS (9 sets, daily range): BP systolic 116–156; BP diastolic 56–77; PULSE 36–52; RESP 12–18; TEMP 36.1–36.8; O2SAT 36–100; BMI 32.2; BMI 31.5
--- NOTE | 2022-10-17 11:37 | EKG12_ITS ---
Test Reason : MALENA Blood Pressure : / mmHG Vent. Rate : 038 BPM Atrial Rate : 038 BPM P-R Int : 190 ms QRS Dur : 138 ms QT Int : 502 ms P-R-T Axes : 022 -18 -15 degrees QTc Int : 399 ms Marked sinus bradycardia Right bundle branch block Abnormal ECG Confirmed by BRETT HA, [employer] ([id number]), editor & co founder JASVIR HERRERA ([id number]) on 10/20/2022 11:27:12 AM Referred By: KATT Confirmed By:NATHALIE WEST MD
[2022-10-17 11:53] LABS: Absolute Lymphocyte Count 1.62 X10^3/uL (0.83-4.51); Absolute Neutrophil Count 3.9 X10^3/uL (2.0-7.7); Basophil# 0.06 X10^3/uL; Basophil% 0.8 % (0-1); Eosinophil# 0.52 X10^3/uL; Eosinophils% 7.4 % (0-5); Hematocrit 44.6 % (40-54); Hemoglobin 14.8 g/dL (13.0-16.5); Lymphocyte # 1.62 X10^3/ul (0.83-4.51); Lymphocyte % 22.9 % (19-41); Mean Corp Hgb Conc 33.2 g/dL (32-36); Mean Corpuscular Hgb 30.3 pg (27.0-32.0); Mean Corpuscular Volume 91.2 fL (80-94); Monocyte# 0.89 X10^3/uL; Monocyte% 12.6 % (0-10); NRBC Flagged by Analyzer 0 % (0-5); Neutrophil # 3.92 X10^3/uL (2.7-7.7); Neutrophil % 55.5 % (47-70); Platelet Count 234 K/mm3 (150-450); RBC Distribution Width CV 13.3 % (11.6-14.6); RBC Distribution Width SD 44.8 fl (35.1-43.9); Red Blood Count 4.89 M/mm3 (4.6-6.2); White Blood Count 7.1 K/mm3 (4.4-11.0)
--- NOTE | 2022-10-17 11:53 | RAD_ITS ---
STUDY: X-RAY CHEST REASON FOR EXAM: Male, 72 years old. Chest pain TECHNIQUE: Single AP portable view x2 of the chest. COMPARISON: August 11, 2017 chest x-ray FINDINGS: The lungs are clear and expanded. There is no demonstrated pleural abnormality. Normal size heart. Normal mediastinum and rick. Normal visualized pulmonary arteries. Normal visualized aortic arch and descending thoracic aorta. There are diffuse degenerative changes of the visualized thoracic spine. Normal visualized ribs, clavicles, and shoulders. There is no demonstrated abnormality of the visualized soft tissue structures of the upper abdomen. RAD/Chest 1 View (Portable) IMPRESSION: No demonstrated acute cardiopulmonary process. Electronically Signed: Jessica Brown MD at 12:28 EDT ,
[2022-10-17 12:07] LABS: Anion Gap 2 (5-15); BUN 17 mg/dL (7-18); BUN/Creat Ratio 17.2 RATIO (10-20); Calcium,Total 8.9 mg/dL (8.5-10.1); Chloride 106 mmol/L (98-107); Creatinine, Serum 0.99 mg/dL (0.70-1.30); EST Glomerular Filtration Rate 79 mL/min (>60); Est Glom Filt Rate - Afr Amer 95 mL/min (>60); Estimated Creatinine Clearance 69.64 ml/min; Glucose 120 mg/dL (74-106); Potassium 3.8 mmol/L (3.5-5.1); Sodium Level 136 mmol/L (136-145); Troponin-I HS (w/2H Reflex) 18 pg/mL (3.0-78.0)
--- NOTE | 2022-10-17 12:25 | EDS_ITS ---
HPI History of Present Illness Chief Complaint: Dizziness Detail of Chief Complaint: Symptomatic bradycardia and abnormal EKG Informant: patient, spouse/S.O. and PCP Onset/Context/Timing Onset: Days Context: Gradual Onset Timing: Continuous Quality: Patient's had progressive bradycardia Location: Cardiovascular Current Severity: Moderate Maximum Severity: Moderate Worsened by: Drug interaction due to calcium channel brando, beta-brando and clonidine Relieved by: Nothing Associated Symptoms Associated Symptoms: Lightheadedness Narrative Narrative: Patient is a 72-year-old male with history of hypertension, hyperlipidemia who was sent from his primary care physician office because of EKG changes that are new. Patient was seen immediately upon arrival. He does report intermittent fullness left-sided chest that has no relationship to activity position etc. There is no associated symptoms or radiation. He has no known history of marquez ry disease. He does have history of mitral insufficiency and premature atrial complexes. He does endorse mild dyspnea with activity and lightheadedness. He denies black or maroon-colored stool. He He denies fever, chills night sweats. [place] headache, visual, ocular auditory symptoms. He denies orthopnea, PND or dyspnea. He sleeps with 3 pillows. This is for comfort since his spine surgery 1 to 1.5 years ago. Patient denies leg pain, swelling discoloration. 3 of PE or DVT. Patient does report atrial fibrillation after spine surgery and infection requiring admission. Prior similar symptoms: No Recent Illness/Hospitalization: Yes [facility] Medical History Abnormal EKG CAD (coronary artery disease) Essential hypertension HLD (hyperlipidemia) Obstructive sleep apnea Sinus bradycardia Home Medications hydrochlorothiazide 25 mg tablet 25 mg PO DAILY blood pressure 06/13/13 [History Last Taken 08/11/17 06:00] montelukast 10 mg tablet 10 mg PO QHS copd 06/13/13 [History Last Taken 08/10/17 20:00] aspirin 81 mg chewable tablet 81 mg PO DAILY@0800 preventative 02/18/17 [History Last Taken 08/11/17 06:00] pravastatin 10 mg tablet 10 mg PO QHS lowers cholesterol 02/18/17 [History Last Taken 08/10/17 22:00] sildenafil (pulm.hypertension) 20 mg tablet 20 mg PO DAILY PRN prior to intercourse 02/18/17 [History Last Taken Unknown] valsartan 320 mg tablet 320 mg PO DAILY hypertension 02/18/17 [History Last Taken 08/11/17 06:00] pantoprazole 40 mg tablet,delayed release 40 mg PO DAILY #30 tabs 08/12/17 [Rx Last Taken Unknown] albuterol sulfate 90 mcg/actuation aerosol inhaler 2 inh inhalation Q4H PRN Sob &/Or Wheezing 17 days #18 grams 08/26/17 [History Last Taken Unknown] amlodipine 5 mg tablet 5 mg PO DAILY 04/11/18 [History Last Taken Unknown] glucosamine sulfate 500 mg tablet (Glucosamine) 500 mg PO DAILY 06/10/18 [History Last Taken Unknown] bisoprolol fumarate 10 mg tablet 10 mg PO DAILY 01/20/19 [History Last Taken Unknown] fluticasone propionate 50 mcg/actuation nasal spray,suspension (Flonase Allergy Relief) 1 spray intranasal DAILY PRN 03/13/20 [History Last Taken Unknown] ibuprofen 200 mg tablet 400 mg PO DAILY 03/13/20 [History Last Taken Unknown] magnesium oxide 400 mg (241.3 mg magnesium) tablet 400 mg PO DAILY 03/13/20 [History Last Taken Unknown] meloxicam 15 mg tablet 15 mg PO DAILY 03/13/20 [History Last Taken Unknown] multivitamin 1 tab PO DAILY 03/13/20 [History Last Taken Unknown] pyridoxine (vitamin B6) 100 mg tablet 100 mg PO DAILY 03/13/20 [History Last Taken Unknown] Allergy/AdvReac Type Severity Reaction Status Date / Time acetaminophen [From Vicodin] Allergy NEEDS Verified 10/17/22 11:33 FOLLOW-UP hydrocodone [From Vicodin] Allergy NEEDS Verified 10/17/22 11:33 FOLLOW-UP quinapril [From Accupril] Allergy NEEDS Verified 10/17/22 11:33 FOLLOW-UP simvastatin [From Zocor] Allergy NEEDS Verified 10/17/22 11:33 FOLLOW-UP sulindac [From Clinoril] Allergy NEEDS Verified 10/17/22 11:33 FOLLOW-UP Family History Father Cancer Prostate cancer CAD (coronary artery disease) Hx coronary stent x2 Mother Cancer lymphoma Brother Cancer Hx of prostate cancer Surgical History H/O spinal fusion History of biopsy of bladder (~2012) History of carpal tunnel release of both wrists History of left hip replacement (03/2018) Social History Smoking Status: Current some day smoker tobacco type: cigars alcohol intake: current alcohol intake frequency: a few times a week Alcohol type: hard liquor substance use type: does not use caffeine: Yes Type: coffee what type of physical activity do you participate in: bicycling and other details: racketball frequency: 3-4 times per week duration: 30-45 minutes/day seatbelt use: always do you feel safe at home: Yes ROS ROS ED Constitutional Constitutional ED: Denies chills, fever(s), subjective, sweats or weight loss Eyes Eyes: Denies blurry vision, change in vision or diplopia ENT ENT ED: Denies ear pain, rhinorrhea or sore throat Cardiovascular Cardiovascular: Denies chest pain, orthopnea, palpitations, paroxysmal nocturnal dyspnea or racing heartbeat Respiratory/Chest Respiratory/Chest: Denies cough, dyspnea, dyspnea on exertion, orthopnea, paroxysmal nocturnal dyspnea or sputum Gastrointestinal Gastrointestinal: Denies abdominal pain, melena, nausea or vomiting Genitourinary Genitourinary ED: Denies dysuria, hematuria or urinary frequency Musculoskeletal Musculoskeletal: Denies arthralgias, back pain or myalgias Integumentary Denies rash Neurologic Neurologic: Denies headache(s), paresthesias or weakness Endocrine Endocrinology: Denies cold intolerance or heat intolerance Hematologic/Lymphatic Hematologic/Lymphatic: Reports systems reviewed and no addt'l complaints, except as documented and other Details: Patient is on Eliquis. EXAM Physical Exam Const Vital Signs: 10/17/22 11:28 10/17/22 11:31 10/17/22 11:33 Temperature 97.9 F Temperature Source Temporal Pulse Rate 39 L 36 L Respiratory Rate 18 14 Respiratory Effort Normal Non-Labored Respiratory Pattern Normal Pulse Ox 97 98 Oxygen Delivery Method Room Air Room Air 10/17/22 11:37 Temperature Temperature Source Pulse Rate Respiratory Rate Respiratory Effort Respiratory Pattern Pulse Ox 36 Oxygen Delivery Method Room Air Positive well nourished, well developed and obese General Appearance ED: well developed and NAD; Negative for pallor Nutritional Appearance: obese HEENT Reports moist mucous membranes HEENT Narrative: Head is atraumatic normocephalic. Ears normal. Nares patent. Posterior pharynx is normal. Eyes PERRL and EOMs intact bilaterally General Eye ED: Negative for pale conjunctiva or scleral icterus Neck no lymphadenopathy, supple and no JVD Chest Wall inspection of chest normal and palpation of chest normal Resp normal respiratory effort and clear to auscultation bilaterally Cardio regular rhythm, S1 normal heart sound, S2 normal heart sound and no murmurs Rate: bradycardia GI normal to inspection, nondistended, normoactive bowel sounds, non-tender, non- distended and no masses; Negative for hepatosplenomegaly Back/Spine no CVA tenderness Extremity normal to inspection Extremity Narrative: There is no asymmetry, swelling, discoloration, leg vein distention, palpable cords or tenderness along the distribution of the deep venous system. Neuro oriented x3, CN's II-XII intact bilaterally and no sensory deficits noted Sensorium / Orientation: alert Psych mental status grossly normal Skin no rashes or lesions noted, no wounds and skin turgor normal General Skin Exam: Negative for jaundice or pallor MDM MDM MDM Narrative Medical decision making narrative: Suspect patient has drug drug interaction due to the fact he is on a calcium channel brando, beta-brando and clonidine which has central alpha effects and side effect of bradycardia. Patient bradycardia became worse after he was instructed to double his clonidine dose. He is taking 0.4 mg 3 times daily. Low concern for patient's chest fullness. Suspect his symptoms are due to bradycardia and inability to increase heart rate with activity. EKG was obtained. EKG reveals a sinus bradycardia rate of 36 with nonseptic lateral changes. This is unchanged from May 2022. History & Record Review Discussion w/independent historian: Patient and Significant other Lab Data Attestation: I reviewed the patient's lab results. Lab results narrative: CBC is unremarkable. Electrolyte panel is unremarkable. Troponin is normal with symptoms of 1 to 3 weeks. Labs: Laboratory Results - last 24 hr 10/17/22 10/17/22 11:15 11:15 WBC 7.1 RBC 4.89 Hgb 14.8 Hct 44.6 MCV 91.2 MCH 30.3 MCHC 33.2 RDW Std Deviation 44.8 H RDW Coeff of Rafi 13.3 Plt Count 234 MPV 11.0 Immature Gran % (Auto) 0.800 Neut % (Auto) 55.5 Lymph % (Auto) 22.9 Brown % (Auto) 12.6 H Eos % (Auto) 7.4 H Baso % (Auto) 0.8 Absolute Neuts (auto) 3.9 Absolute Lymphs (auto) 1.62 Nucleated RBC % 0 Sodium 136 Potassium 3.8 Chloride 106 Carbon Dioxide 28.0 Anion Gap 2 L BUN 17 Creatinine 0.99 Estim Creat Clear Calc 69.64 Est GFR (MDRD) Af Amer 95 Est GFR (MDRD) Non-Af 79 BUN/Creatinine Ratio 17.2 Glucose 120 H Calcium 8.9 Troponin I High Sens 18 EKG Initial EKG: Attestation: I personally reviewed and interpreted this EKG as follows: Interpretation: Sinus Bradycardia (Rate is 38. There is a right bundle branch block. RI interval is 190 ms. QS duration 138 ms. QT duration 502 ms. [place] is normal. 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 Critical Care Time Critical Care Time: Yes Critical care time (excluding procedures): 30-74 minutes (31 minutes), Including time spent: (History, physical, documentation, review of outside records, interpretation laboratory results), Discussing w/Patient &/or Family/Buncher Operator, Discussing w/Consultants (Discussion with straddle bug driver and admitting hospitalist) and Arranging Admission or Transfer Discharge Plan Triage Chief Complaint: Dizziness ED Provider: Ezequiel Bennett Dx/Rx/DC Orders Clinical Impression: Bradycardia with 31-40 beats per minute, Essential hypertension, Abnormal EKG, HLD (hyperlipidemia), Bradycardia, drug induced Prescriptions: No Action albuterol sulfate 90 mcg/actuation HFA aerosol inhaler 2 inh INHALATION Q4H PRN (Reason: Sob &/Or Wheezing) 17 Days Qty: 18 Label Comments: inhale two puffs into the lungs as instructed every 4 hours as needed. glucosamine sulfate [Glucosamine] 500 mg tablet 500 mg PO DAILY bisoprolol fumarate 10 mg tablet 10 mg PO DAILY fluticasone propionate [Flonase Allergy Relief] 50 mcg/actuation spray,suspension 1 spray INTRANASAL DAILY PRN ibuprofen 200 mg tablet 400 mg PO DAILY multivitamin Tablet 1 tab PO DAILY pyridoxine (vitamin B6) 100 mg tablet 100 mg PO DAILY magnesium oxide 400 mg (241.3 mg magnesium) tablet 400 mg PO DAILY meloxicam 15 mg tablet 15 mg PO DAILY montelukast 10 MG tablet 10 mg PO QHS Label Comments: Allergies hydrochlorothiazide 25 MG tablet 25 mg PO DAILY Label Comments: Water Pill pravastatin 10 MG tablet 10 mg PO QHS Label Comments: valsartan 320 MG tablet 320 mg PO DAILY Label Comments: Take 1 tablet by mouth once daily. aspirin 81 MG tablet,chewable 81 mg PO DAILY@0800 sildenafil (pulm.hypertension) 20 MG tablet 20 mg PO DAILY PRN (Reason: prior to intercourse) pantoprazole 40 MG tablet 40 mg PO DAILY Qty: 30 7RF amlodipine 5 MG tablet 5 mg PO DAILY Primary Care Provider: Les Cisse Referrals: Les Cisse MD [Primary Care Provider] -
[2022-10-17 13:46] LABS: Reflex Troponin-HS? (from REC) Y
[2022-10-17] MEDS: hydrALAZINE 50 MG Tablet 100 MG PO ×2 (14:11→22:09)
[2022-10-17 15:04] LABS: Troponin-I HS 16 pg/mL (3.0-78.0)
--- NOTE | 2022-10-17 18:31 | PCM.HP.STD ---
HPI - General General Date of Admission: 10/17/22 Date of Service: 10/17/22 Chief Complaint: Slow heart rate HPI Narrative LADI LOBO, is a 72 M who presents to the emergency room at [facility] after being seen at his physician's office for blood pressure check, it was noticed that his heart rate was very low, patient's blood pressure was not low however. He was sent to the emergency room for evaluation. Work-up in the emergency room included a CBC which was unremarkable, chemistry panel was unremarkable, troponin was normal, patient's chest x-ray was unremarkable. EKG showed a sinus bradycardia with a rate of 36, there were no acute ischemic changes noted. Patient was alert and appropriate. Patient was placed in observation status on PCU for bradycardia, this was believed to be secondary to usage of clonidine and bisoprolol, patient will be taken off his bisoprolol and clonidine, patient will be placed on hydralazine and he will continue valsartan and hydrochlorothiazide for his blood pressure. [facility] Medical History Abnormal EKG CAD (coronary artery disease) Essential hypertension HLD (hyperlipidemia) Obstructive sleep apnea Sinus bradycardia Home Medications montelukast 10 mg tablet 10 mg PO QHS copd 06/13/13 [History Last Taken 08/10/17 20:00] aspirin 81 mg chewable tablet 81 mg PO DAILY@0800 preventative 02/18/17 [History Last Taken 08/11/17 06:00] pravastatin 10 mg tablet 10 mg PO QHS lowers cholesterol 02/18/17 [History Last Taken 08/10/17 22:00] valsartan 320 mg tablet 320 mg PO DAILY hypertension 02/18/17 [History Last Taken 08/11/17 06:00] albuterol sulfate 90 mcg/actuation aerosol inhaler 2 inh inhalation Q4H PRN Sob &/Or Wheezing 17 days #18 grams 08/26/17 [History Last Taken Unknown] bisoprolol fumarate 10 mg tablet 5 mg PO DAILY 01/20/19 [History Last Taken Unknown] magnesium oxide 400 mg (241.3 mg magnesium) tablet 400 mg PO DAILY 03/13/20 [History Last Taken Unknown] multivitamin 1 tab PO DAILY 03/13/20 [History Last Taken Unknown] apixaban 5 mg tablet (Eliquis) 5 mg PO BID 10/17/22 [History Last Taken Unknown] cholecalciferol (vitamin D3) 25 mcg (1,000 unit) capsule (Vitamin D3) 25 mcg PO BID 10/17/22 [History Last Taken Unknown] clonidine HCl 0.1 mg tablet 0.4 mg PO BID 10/17/22 [History Last Taken Unknown] potassium 99 mg tablet 99 mg PO DAILY 10/17/22 [History Last Taken Unknown] triamterene 37.5 mg-hydrochlorothiazide 25 mg tablet 1 tab PO DAILY 10/17/22 [History Last Taken Unknown] Allergy/AdvReac Type Severity Reaction Status Date / Time acetaminophen [From Vicodin] Allergy NEEDS Verified 10/17/22 11:33 FOLLOW-UP hydrocodone [From Vicodin] Allergy NEEDS Verified 10/17/22 11:33 FOLLOW-UP quinapril [From Accupril] Allergy NEEDS Verified 10/17/22 11:33 FOLLOW-UP simvastatin [From Zocor] Allergy NEEDS Verified 10/17/22 11:33 FOLLOW-UP sulindac [From Clinoril] Allergy NEEDS Verified 10/17/22 11:33 FOLLOW-UP Family History Father Cancer Prostate cancer CAD (coronary artery disease) Hx coronary stent x2 Mother Cancer lymphoma Brother Cancer Hx of prostate cancer Surgical History H/O spinal fusion History of biopsy of bladder (~2012) History of carpal tunnel release of both wrists History of left hip replacement (03/2018) Social History Smoking Status: Current some day smoker tobacco type: cigars alcohol intake: current alcohol intake frequency: a few times a week Alcohol type: hard liquor substance use type: does not use caffeine: Yes Type: coffee what type of physical activity do you participate in: bicycling and other details: racketball frequency: 3-4 times per week duration: 30-45 minutes/day seatbelt use: always do you feel safe at home: Yes ROS Constitutional Constitutional: Denies anorexia, change in weight, fever(s), night sweats or weakness Eyes Eyes: Denies blurry vision, change in vision, discharge from eye(s) or eye pain Cardiovascular Cardiovascular: Denies chest pain, claudication, edema or palpitations Respiratory/Chest Respiratory/Chest: Denies cough, hemoptysis, shortness of breath at rest or shortness of breath with exertion Gastrointestinal Gastrointestinal: Denies abdominal pain, constipation, diarrhea, hematemesis, hematochezia, melena, nausea or vomiting Genitourinary Genitourinary: Denies dysuria, hematuria, urinary frequency, urinary hesitancy, urinary incontinence or urinary urgency Musculoskeletal Musculoskeletal: Denies back pain, joint pain, joint stiffness, joint swelling, myalgias or neck pain Neurologic Neurologic: Denies abnormal gait, abnormal speech, dizziness, focal weakness, headache(s), loss of vision, numbness, other visual disturbances, paresthesias, syncope or tingling Psychiatric Psychiatric: Denies anxiety, cognitive impairment, depression, irritability, mood swings or suicidal ideation Endocrine Endocrinology: Denies change in body appearance, cold intolerance, excessive sweating, heat intolerance, polydipsia or polyuria Hematologic/Lymphatic Hematologic/Lymphatic: Denies none, anemia, easy bleeding, easy bruising or lymphadenopathy Allergic/Immunologic Allergic/Immunologic: Denies rhinitis, urticaria, eczemia or asthma Vital Signs Vital Signs Vital Signs: 10/17/22 11:28 10/17/22 11:31 10/17/22 11:33 Temperature 97.9 F Temperature Source Temporal Pulse Rate 39 L 36 L Respiratory Rate 18 14 Respiratory Effort Normal Non-Labored Respiratory Pattern Normal Blood Pressure Blood Pressure Mean Blood Pressure Source Blood Pressure Position Blood Pressure Location Pulse Ox 97 98 Oxygen Delivery Method Room Air Room Air 10/17/22 11:37 10/17/22 13:27 10/17/22 14:00 Temperature 97 F L 98.0 F Temperature Source Temporal Oral Pulse Rate 36 L 41 L Respiratory Rate 16 14 Respiratory Effort Respiratory Pattern Blood Pressure 122/71 H 147/77 H Blood Pressure Mean 88 100 Blood Pressure Source Monitor Blood Pressure Position Semi-Fowlers Blood Pressure Location Left Arm Pulse Ox 36 98 100 Oxygen Delivery Method Room Air Room Air Room Air 10/17/22 14:11 10/17/22 17:58 Temperature 98.1 F Temperature Source Oral Pulse Rate 41 L 48 L Respiratory Rate 12 Respiratory Effort Respiratory Pattern Blood Pressure 116/56 L Blood Pressure Mean 76 Blood Pressure Source Monitor Blood Pressure Position Semi-Fowlers Blood Pressure Location Left Arm Pulse Ox 98 Oxygen Delivery Method Room Air Weight Weight: 96.9 kg Body Mass Index (BMI) 31.5 Physical Exam Const alert, oriented x3, no apparent distress, average body habitus and healthy appearing General Appearance: cooperative, well kempt and well developed Orientation / Consciousness: awake, oriented to person, oriented to place and oriented to time HEENT normocephalic, head/scalp atraumatic, hearing grossly normal bilaterally and moist oral mucous membranes Eyes PERRL, EOMs intact bilaterally and conjunctivae normal Neck supple, no JVD, thyroid normal and no carotid bruits General: trachea midline Resp normal respiratory effort, no retractions, no use of accessory muscles and clear to auscultation bilaterally Auscultation: Negative for rales, rhonchi or wheezes Cardio regular rate, regular rhythm, S1 normal heart sound, S2 normal heart sound, no murmurs, no rub and no gallops Cardio Narrative: Patient is bradycardic GI normal to inspection, nondistended, normoactive bowel sounds, soft to palpation, non-tender and non-distended Extremity no clubbing, cyanosis or edema Skin no rashes or lesions noted General Skin Exam: no breakdown Neuro oriented x3, CN's II-XII intact bilaterally, moves all extremities, no focal motor deficits and no sensory deficits noted Sensorium / Orientation: awake and alert Speech: speech normal Psych affect normal Results Lab / Micro Data Result Diagrams: 10/17/22 11:15 10/17/22 11:15 Labs: Laboratory Results - last 24 hr 10/17/22 11:15: WBC 7.1, RBC 4.89, Hgb 14.8, Hct 44.6, MCV 91.2, MCH 30.3, MCHC 33.2, RDW Std Deviation 44.8 H, RDW Coeff of Rafi 13.3, Plt Count 234, MPV 11.0, Immature Gran % (Auto) 0.800, Neut % (Auto) 55.5, Lymph % (Auto) 22.9, [place] % (Auto) 12.6 H, Eos % (Auto) 7.4 H, Baso % (Auto) 0.8, Absolute Neuts (auto) 3.9, Absolute Lymphs (auto) 1.62, Nucleated RBC % 0 10/17/22 11:15: Sodium 136, Potassium 3.8, Chloride 106, Carbon Dioxide 28.0, Anion Gap 2 L, BUN 17, Creatinine 0.99, Estim Creat Clear Calc 69.64, Est GFR (MDRD) Af Amer 95, Est GFR (MDRD) Non-Af 79, BUN/Creatinine Ratio 17.2, Glucose 120 H, Calcium 8.9, Troponin I High Sens 18 10/17/22 14:20: Troponin I High Sens 16 Radiology Impression Chest X-Ray 10/17/22 11:53 IMPRESSION: No demonstrated acute cardiopulmonary process. Electronically Signed: Jessica Brown MD at 12:28 EDT , Assessment & Plan Assessment/Plan (1) Bradycardia, drug induced: PLAN: Plan 1. Drug-induced bradycardia-again patient was placed in observation status on PCU, his bisoprolol will be held, he will remain on valsartan, amlodipine, hydrochlorothiazide, and I have started him on hydralazine. Patient's clonidine will be stopped. #2 essential hypertension-patient's blood pressure will be monitored, again his medications were readjusted #3 paroxysmal atrial fibrillation-patient will remain on his anticoagulant at this time, in talking with the patient's and the patient, it appears the patient had 1 episode of atrial fib and he was placed on rate control medication and anticoagulants, he does see a cardiac cath lab manager and [place] on a chronic basis and the states the cardiac cath lab manager has refused to take him off Eliquis, I suggested that he get a second opinion regarding his need for the use of this medication since he only had 1 episode of atrial fibrillation. I told the and the patient that he may need to get a 30-day monitor performed. #4 hyperlipidemia-patient's pravastatin will be held due to the fact he is in the hospital under observation status. #5 asthma-I have elected to take the patient off his Singulair at this time, he will be observed for any medical changes Total clinical time spent by myself addressing the patient's medical issues, reviewing all of his data, and collaborating with patient's care team: 75-minutes Charges/Coding Visit Charges Inpatient E&M: 33079 Init Hosp L3
[2022-10-18 04:50] VITALS: BP 143/78; PULSE 48; RESP 16; TEMP 36.1; O2SAT 97
[2022-10-18 05:28] VITALS: BP 155/78; PULSE 52
[2022-10-18] MEDS: hydrALAZINE 50 MG Tablet 100 MG PO (05:28)
[2022-10-18] MEDS: Aspirin 81 MG TAB.CHEW PO (09:00)
[2022-10-18] MEDS: Pantoprazole Sodium 40 MG Tablet PO (09:38)
[2022-10-18] MEDS: Losartan Potassium 100 MG Tablet PO (09:38)
[2022-10-18] MEDS: hydroCHLOROthiazide 25 MG Tablet PO (09:38)
[2022-10-18] MEDS: amLODIPine 5 MG Tablet PO (09:38)
[2022-10-18] MEDS: 0.9% Saline Lock 10 ML Syringe IV (09:39)
[2022-10-18] MEDS: Acetaminophen 325 MG Tablet 650 MG PO (09:41)
[2022-10-18] MEDS: Fluticasone 0.05% 1 SPRAY NASAL.SRY NASAL (09:41)
--- NOTE | 2022-10-18 10:01 | PCM.DC ---
Discharge Instructions Diet Discharge Diet: No restrictions Activity Discharge Activity: Return to Normal Activity Weight Bearing Status: Full weight bearing Follow Up Care Test Results: Test results from this visit will be discussed in further detail at your follow-up appointment, if applicable. Discharge Plan Admission Admit Date/Time: 10/17/22 12:24 Primary Reason for Your Visit: bradycardia Attending Provider: Blayne Campa Primary Care Provider: Les Cisse Instructions Additional Instructions / Restrictions: You can ask your family physician concerning a referral to see another ice cream truck driver for second opinion on whether you need to continue your Eliquis I recommend you ask your family physician regarding having another pulmonary function test performed You may need to be placed on a different water pill, the amlodipine and hydralazine can cause water retention, discussed this with your family physician Discharge Orders/Prescriptions Prescriptions: New amlodipine 5 mg Tablet 5 mg PO DAILY Qty: 30 0RF hydralazine 50 mg Tablet 100 mg PO TID Qty: 180 0RF fluticasone propionate 50 mcg/actuation [place],Suspension 1 spray NASAL BID PRN PRN (Reason: nasal congestion) Qty: 0 0RF Continued albuterol sulfate 90 mcg/actuation HFA aerosol inhaler 2 inh INHALATION Q4H PRN (Reason: Sob &/Or Wheezing) 17 Days Qty: 18 Label Comments: inhale two puffs into the lungs as instructed every 4 hours as needed. multivitamin Tablet 1 tab PO DAILY magnesium oxide 400 mg (241.3 mg magnesium) tablet 400 mg PO DAILY montelukast 10 MG tablet 10 mg PO QHS Label Comments: Allergies pravastatin 10 MG tablet 10 mg PO QHS Label Comments: valsartan 320 MG tablet 320 mg PO DAILY Label Comments: Take 1 tablet by mouth once daily. aspirin 81 MG tablet,chewable 81 mg PO DAILY@0800 triamterene-hydrochlorothiazid 37.5-25 mg tablet 1 tab PO DAILY cholecalciferol (vitamin D3) [Vitamin D3] 25 mcg (1,000 unit) Capsule 25 mcg PO BID Eliquis 5 mg Tablet 5 mg PO BID Discontinued bisoprolol fumarate 10 mg tablet 5 mg PO DAILY clonidine HCl 0.1 mg tablet 0.4 mg PO BID potassium 99 mg Tablet 99 mg PO DAILY Referrals / Follow Up: Les Cisse MD [Primary Care Provider] - See Referral Note (On Thursday or Thursday) Disposition Disposition (needs filled in before D/C Order can be placed): Home, Self Care
--- NOTE | 2022-10-18 10:08 | PCM.DC.SUM ---
Providers Date of Admission: 10/17/22 Date of Discharge: 10/18/22 Primary Care Physician: Dr. Les Cisse MD Reason For Visit: BRADYCARDIA Diagnosis Discharge Diagnosis (1) Bradycardia, drug induced: Status: Acute Code(s): R00.1 - Bradycardia, unspecified; T50.905A - Adverse effect of unspecified drugs, medicaments and biological substances, initial encounter Plan 1. Drug-induced bradycardia-again patient was placed in observation status on PCU, his bisoprolol will be held, he will remain on valsartan, amlodipine, hydrochlorothiazide, and I have started him on hydralazine. Patient's clonidine will be stopped. #2 essential hypertension-patient's blood pressure will be monitored, again his medications were readjusted #3 paroxysmal atrial fibrillation-patient will remain on his anticoagulant at this time, in talking with the patient's and the patient, it appears the patient had 1 episode of atrial fib and he was placed on rate control medication and anticoagulants, he does see a level vial inside grinder and [place] on a chronic basis and the states the level vial inside grinder has refused to take him off Eliquis, I suggested that he get a second opinion regarding his need for the use of this medication since he only had 1 episode of atrial fibrillation. I told the and the patient that he may need to get a 30-day monitor performed. #4 hyperlipidemia-patient's pravastatin will be held due to the fact he is in the hospital under observation status. #5 asthma-I have elected to take the patient off his Singulair at this time, he will be observed for any medical changes Total clinical time spent by myself addressing the patient's medical issues, reviewing all of his data, and collaborating with patient's care team: 75-minutes Medications at Discharge Home Medications montelukast 10 mg tablet 10 mg PO QHS copd 06/13/13 aspirin 81 mg chewable tablet 81 mg PO DAILY@0800 preventative 02/18/17 pravastatin 10 mg tablet 10 mg PO QHS lowers cholesterol 02/18/17 valsartan 320 mg tablet 320 mg PO DAILY hypertension 02/18/17 albuterol sulfate 90 mcg/actuation aerosol inhaler 2 inh inhalation Q4H PRN Sob &/Or Wheezing 17 days #18 grams 08/26/17 magnesium oxide 400 mg (241.3 mg magnesium) tablet 400 mg PO DAILY 03/13/20 multivitamin 1 tab PO DAILY 03/13/20 apixaban 5 mg tablet (Eliquis) 5 mg PO BID 10/17/22 cholecalciferol (vitamin D3) 25 mcg (1,000 unit) capsule (Vitamin D3) 25 mcg PO BID 10/17/22 triamterene 37.5 mg-hydrochlorothiazide 25 mg tablet 1 tab PO DAILY 10/17/22 amlodipine 5 mg tablet 5 mg PO DAILY #30 tabs 10/18/22 fluticasone propionate 50 mcg/actuation nasal spray,suspension 1 spray NASAL BID PRN PRN nasal congestion #0 grams 10/18/22 hydralazine 50 mg tablet 100 mg PO TID #180 tabs 10/18/22 Hospital Course Operations None Procedures None Summary of Care Provided Minutes Spent on Discharge: 32 Hospital Course: 72-year-old white male was seen in the emergency room at [facility] after he was sent in by his PCP, during his office visit, it was noted that his heart rate was low, his PCP had been adjusting the patient's blood pressure medications. Work-up in the emergency room revealed a normal chest x-ray, EKG showed a sinus bradycardia at approximately 32, patient's blood pressure was not low. It was felt that the patient's bradycardia was as a result of clonidine that patient was taking along with bisoprolol. Patient was placed in observation status on PCU, he was monitored on telemetry and had bradycardia initially which improved during his hospitalization with pulse rate at 66 at the time of discharge. Many discussions were carried out with the patient and the patient's brother who is in the room during my examination at the time of discharge about his medication changes and outpatient instructions. On 10/18/2022, patient was seen and examined: On examination he appeared in good health and spirits. Vital signs as documented. Skin warm and dry and without overt rashes. Neck without JVD, neck was supple, trachea midline, thyroid was normal. Lungs clear bilaterally, normal air movement was noted. Heart exam notable for regular rhythm, normal sounds and absence of murmurs, rubs or gallops. Abdomen unremarkable and without evidence of organomegaly, masses, or abdominal aortic enlargement. Bowel sounds are present, abdomen is not distended. Extremities nonedematous, no cyanosis was noted, no clubbing was noted. Neuro: Cranial nerves II through XII are grossly intact, no focal motor deficits were noted, sensation to light touch and pinprick intact, motor exam 5/5 throughout. Psych: Patient is alert and oriented x3, he does not appear anxious or depressed, he does not appear agitated. Patient was discharged home in stable condition on 10/18/2022. Weight / BMI Weight Weight: 96.9 kg Body Mass Index (BMI) 31.5 ABG / Lab / Microbiology Data Result Diagrams: 10/17/22 11:15 10/17/22 11:15 Laboratory: Laboratory Results - last 24 hr 10/17/22 11:15: WBC 7.1, RBC 4.89, Hgb 14.8, Hct 44.6, MCV 91.2, MCH 30.3, MCHC 33.2, RDW Std Deviation 44.8 H, RDW Coeff of Rafi 13.3, Plt Count 234, MPV 11.0, Immature Gran % (Auto) 0.800, Neut % (Auto) 55.5, Lymph % (Auto) 22.9, [place] % (Auto) 12.6 H, Eos % (Auto) 7.4 H, Baso % (Auto) 0.8, Absolute Neuts (auto) 3.9, Absolute Lymphs (auto) 1.62, Nucleated RBC % 0 10/17/22 11:15: Sodium 136, Potassium 3.8, Chloride 106, Carbon Dioxide 28.0, Anion Gap 2 L, BUN 17, Creatinine 0.99, Estim Creat Clear Calc 69.64, Est GFR (MDRD) Af Amer 95, Est GFR (MDRD) Non-Af 79, BUN/Creatinine Ratio 17.2, Glucose 120 H, Calcium 8.9, Troponin I High Sens 18 10/17/22 14:20: Troponin I High Sens 16 Radiography Diagnostic Testing: Radiology Impression Chest X-Ray 10/17/22 11:53 IMPRESSION: No demonstrated acute cardiopulmonary process. Electronically Signed: Jessica Brown MD at 12:28 EDT , D/C Instructions Discharge Diet: No restrictions Weight Bearing Status: Full weight bearing Meaningful Use Info Meaningful Use Diagnoses (Choose all that apply): None applicable Discharge Plan Admission Admit Date/Time: 10/17/22 12:24 Primary Reason for Your Visit: bradycardia Attending Provider: Blayne Campa Primary Care Provider: Les Cisse Instructions Additional Instructions / Restrictions: You can ask your family physician concerning a referral to see another level vial inside grinder for second opinion on whether you need to continue your Eliquis I recommend you ask your family physician regarding having another pulmonary function test performed You may need to be placed on a different water pill, the amlodipine and hydralazine can cause water retention, discussed this with your family physician Discharge Orders/Prescriptions Prescriptions: New amlodipine 5 mg Tablet 5 mg PO DAILY Qty: 30 0RF hydralazine 50 mg Tablet 100 mg PO TID Qty: 180 0RF fluticasone propionate 50 mcg/actuation [place],Suspension 1 spray NASAL BID PRN PRN (Reason: nasal congestion) Qty: 0 0RF Continued albuterol sulfate 90 mcg/actuation HFA aerosol inhaler 2 inh INHALATION Q4H PRN (Reason: Sob &/Or Wheezing) 17 Days Qty: 18 Label Comments: inhale two puffs into the lungs as instructed every 4 hours as needed. multivitamin Tablet 1 tab PO DAILY magnesium oxide 400 mg (241.3 mg magnesium) tablet 400 mg PO DAILY montelukast 10 MG tablet 10 mg PO QHS Label Comments: Allergies pravastatin 10 MG tablet 10 mg PO QHS Label Comments: valsartan 320 MG tablet 320 mg PO DAILY Label Comments: Take 1 tablet by mouth once daily. aspirin 81 MG tablet,chewable 81 mg PO DAILY@0800 triamterene-hydrochlorothiazid 37.5-25 mg tablet 1 tab PO DAILY cholecalciferol (vitamin D3) [Vitamin D3] 25 mcg (1,000 unit) Capsule 25 mcg PO BID Eliquis 5 mg Tablet 5 mg PO BID Discontinued bisoprolol fumarate 10 mg tablet 5 mg PO DAILY clonidine HCl 0.1 mg tablet 0.4 mg PO BID potassium 99 mg Tablet 99 mg PO DAILY Referrals / Follow Up: Les Cisse MD [Primary Care Provider] - See Referral Note (On Thursday or Thursday) Disposition Disposition (needs filled in before D/C Order can be placed): Home, Self Care Charges/Coding Visit Charges Inpatient E&M: 09078 Disch Hosp >30min
[2022-10-18 10:50] VITALS: BP 141/74; PULSE 63; RESP 16; TEMP 36.6; O2SAT 99
[2022-10-18 12:08] VITALS: BP 132/54; PULSE 66; RESP 16; TEMP 36.7; O2SAT 98
== END 2022-10-18 12:09 | disposition home or self-care (01) ==
LOC: ED 12:00 → PCU 12:43
PROVIDERS: Admitting Provider Internal Medicine; Emergency Provider Emergency Medicine; PCP Family Medicine; Visit Provider Internal Medicine
DX: R00.1 Bradycardia, unspecified (principal); I48.0 Paroxysmal atrial fibrillation; R42 Dizziness and giddiness; I10 Essential (primary) hypertension; I25.10 Atherosclerotic heart disease of native coronary artery without angina pectoris; Z79.82 Long term (current) use of aspirin; E78.5 Hyperlipidemia, unspecified; T46.5X5A Adverse effect of other antihypertensive drugs, initial encounter; Z79.899 Other long term (current) drug therapy; Z79.01 Long term (current) use of anticoagulants; R94.31 Abnormal electrocardiogram [ECG] [EKG]; I45.10 Unspecified right bundle-branch block; G47.33 Obstructive sleep apnea (adult) (pediatric); J45.909 Unspecified asthma, uncomplicated
CPT/HCPCS: 36415; 71045; 80048; 84484; 85025; 93005; 99221; 99285; A4216; G0378

== ENCOUNTER → 2022-11-19 | Outpatient (CLI) | payer MEDICARE, SELFPAY ==
[2022-11-19 13:54] LABS: CRP < 2.90 mg/L (0.0-3.0); Erythrocyte Sedimentation Rate 28 mm/hr (0-20)
[2022-11-19 13:55] LABS: Absolute Lymphocyte Count 1.75 X10^3/uL (0.83-4.51); Absolute Neutrophil Count 4.6 X10^3/uL (2.0-7.7); Basophil# 0.04 X10^3/uL; Basophil% 0.5 % (0-1); Eosinophil# 0.39 X10^3/uL; Eosinophils% 5.3 % (0-5); Hematocrit 41.8 % (40-54); Hemoglobin 14.3 g/dL (13.0-16.5); Lymphocyte # 1.75 X10^3/ul (0.83-4.51); Lymphocyte % 23.7 % (19-41); Mean Corp Hgb Conc 34.2 g/dL (32-36); Mean Corpuscular Hgb 30.6 pg (27.0-32.0); Mean Corpuscular Volume 89.5 fL (80-94); Mean Platelet Vol. 10.8 fl (6.2-12.0); Monocyte# 0.63 X10^3/uL; Monocyte% 8.5 % (0-10); NRBC Flagged by Analyzer 0 % (0-5); Neutrophil # 4.57 X10^3/uL (2.7-7.7); Neutrophil % 61.9 % (47-70); Platelet Count 275 K/mm3 (150-450); RBC Distribution Width CV 13.2 % (11.6-14.6); Red Blood Count 4.67 M/mm3 (4.6-6.2); White Blood Count 7.4 K/mm3 (4.4-11.0)
== END | disposition home or self-care (01) ==
LOC: LAB 12:45
PROVIDERS: PCP Family Medicine; Visit Provider Orthopaedic Surgery
DX: T84.031A Mechanical loosening of internal left hip prosthetic joint, initial encounter (principal)
CPT/HCPCS: 36415; 85025; 85652; 86140

== ENCOUNTER → 2022-11-21 | Outpatient (CLI) | payer MEDICARE, SELFPAY ==
--- NOTE | 2022-11-21 08:53 | NM_ITS ---
CLINICAL: 72-year-old male with history of painful left hip arthroplasty operated approximately 5 years previous. LIMITED 99m Tc MDP THREE PHASE BONE SCINTIGRAPHY COMPARISON: None available FINDINGS: Following the intravenous administration of 25.4 mCi of 99m Tc MDP, three-phase bone acquisitions of the pelvis reveal: 1. The flow and immediate static blood pool acquisitions demonstrate normal arterial and venous blood pool distribution of the radiopharmaceutical. 2. Delayed images depict enhanced tracer uptake noted in the acetabular and to a lesser extent intertrochanteric aspect of the left hip prosthesis. 3. The remaining limited skeletal structures are scintigraphically unremarkable. NM/Bone Scan Three Phase IMPRESSION: 1. The increase in radiopharmaceutical defined in the acetabular and intertrochanteric aspects of the left hip arthroplasty most consistent with a component of prosthetic loosening in the setting of operative intervention > 2 years prior to the current presentation. If infection is a diagnostic consideration, correlation with labeled leukocyte imaging is recommended. Electronically Signed: Piter Quiñonez, at 7:55 EDT ,
== END | disposition home or self-care (01) ==
LOC: NM 08:52
PROVIDERS: PCP Family Medicine; Referring Provider Orthopaedic Surgery; Visit Provider Orthopaedic Surgery
DX: T84.031A Mechanical loosening of internal left hip prosthetic joint, initial encounter (principal); X58.XXXA Exposure to other specified factors, initial encounter
CPT/HCPCS: 78315; A9503

== ENCOUNTER 2023-04-29 07:23 | Inpatient (IN) | payer MEDICARE, SELFPAY ==
[2023-04-20 08:46] LABS: Absolute Lymphocyte Count 1.83 X10^3/uL (0.83-4.51); Absolute Neutrophil Count 4.6 X10^3/uL (2.0-7.7); Basophil# 0.06 X10^3/uL; Basophil% 0.8 % (0-1); Eosinophil# 0.44 X10^3/uL; Eosinophils% 5.7 % (0-5); Hematocrit 44.4 % (40-54); Hemoglobin 14.9 g/dL (13.0-16.5); Lymphocyte # 1.83 X10^3/ul (0.83-4.51); Lymphocyte % 23.6 % (19-41); Mean Corp Hgb Conc 33.6 g/dL (32-36); Mean Corpuscular Hgb 30.3 pg (27.0-32.0); Mean Corpuscular Volume 90.4 fL (80-94); Mean Platelet Vol. 9.7 fl (6.2-12.0); Monocyte# 0.82 X10^3/uL; Monocyte% 10.6 % (0-10); NRBC Flagged by Analyzer 0 % (0-5); Neutrophil # 4.59 X10^3/uL (2.7-7.7); Neutrophil % 58.9 % (47-70); Platelet Count 260 K/mm3 (150-450); RBC Distribution Width CV 12.7 % (11.6-14.6); RBC Distribution Width SD 41.6 fl (35.1-43.9); Red Blood Count 4.91 M/mm3 (4.6-6.2); White Blood Count 7.8 K/mm3 (4.4-11.0)
[2023-04-20 09:13] LABS: Magnesium 2.3 mg/dL (1.6-2.6)
[2023-04-20 09:13] LABS: Albumin, Serum 3.6 g/dL (3.2-5.0); Anion Gap 5 (5-15); BUN 23 mg/dL (7-18); BUN/Creat Ratio 21.9 RATIO (10-20); Calcium,Total 9.3 mg/dL (8.5-10.1); Chloride 106 mmol/L (98-107); Creatinine, Serum 1.05 mg/dL (0.70-1.30); EST Glomerular Filtration Rate 74 mL/min (>60); Est Glom Filt Rate - Afr Amer 89 mL/min (>60); Glucose 116 mg/dL (74-106); Potassium 3.9 mmol/L (3.5-5.1); Sodium Level 136 mmol/L (136-145)
--- NOTE | 2023-04-23 11:59 | HP.PCM_ITS ---
History and Physical History and Physical? Patient Name: Jeramy Jefferson : 1950 From:? TERRANCE HARRIS PA-C? DATE OF PRE-OPERATIVE EXAM: 04/22/2023 DATE OF SURGERY:? 04/29/2023 SCHEDULED PROCEDURE:? Revision left total hip acetabular component and head exchange HISTORY OF PRESENT ILLNESS: Preoperative history and physical exam was performed on April 22, 2023.? This is a 73-year-old male who is been having ongoing pain for over 5 years.? Patient has had a previous left total hip arthroplasty [place] [address] Bella.? Patient denies any complications or infection surrounding the surgery.? His pain currently has been constant, aching and sharp.? He has increased pain with walking, going up and down stairs and sitting.? He does have start up pain.? Pain is located in the buttock region radiating into the lateral and anterior thigh.? He does have numbness and tingling in both legs as he does have past history of spine surgery.? Pain does not awaken him at night.? He has difficulty with activities of daily living including bathing/showering.? He has also had difficulty with leisure activities such as golfing and anything that requires him to bend over.? He has tripped/stumbled secondary to the pain.? Feels unsafe lifting heavy objects.? He has tried rest, ice, heat, elevation with minimal relief.? He has tried physical therapy and home exercises without relief.? He has tried Tylenol which only gives temporary relief.? Patient has had a bone scan which did show loosening around the acetabular component.? There is activity at the greater trochanteric region but likely to soft tissue.? Patient has obtain surgical clearance from the primary care physician Dr. Cisse.? We are obtaining surgical clearance from the pet groomer Dr. Carty.? Patient has medical history pertinent for hypertension, paroxysmal atrial fibrillation currently on Eliquis, asthma, sleep apnea with use of CPAP, gastroesophageal reflux disease, chronic obstructive pulmonary disease, benign prostatic hyperplasia, history of constipation.? Patient denies any recent chest pain, shortness of breath, fevers chills or recent infections.? We are obtaining clearance from cardiology and perioperative management of his Eliquis.? He denies past history of DVT or pulmonary embolism.? He has also had previous lumbar fusion in 2021. REVIEW OF SYSTEMS: Review Of Systems: Constitutional: Denies change in appetite, fever, hard of hearing, vision problems and weight change Cardiovasular: Reports irregular heartbeat, but denies chest pain, heart murmur and peripheral vascular disease. Respiratory: Reports asthma and sleep apnea, but denies cough, pneumonia, shortness of breath, tuberculosis and wheezing. Gastrointestinal: Reports constipation, but denies diarrhea, heartburn, nausea, rectal itching, bloody stools and vomiting. Genitourinary: Denies incontinence. Musculoskeletal: Reports pain and trouble walking, but denies leg swelling and weakness. Skin: Denies Raynaud's, history of shingles and tattoo. Neurological: Reports numbness/tingling but denies ambulatory dysfunction, dizziness and tremor. Psychiatric: Denies anxiety, depression, insomnia, mental illness and stress. Hematologic/Lymphatic: Reports bleeding/bruising tendency, but denies anemia and past transfusion. Reviewed and updated. PAST MEDICAL HISTORY: Advance Care Plan: Other Directive, LIVING WILL Effective Date: 07/02/2015 Past Medical History: Medical Problems: High Blood Pressure, Asthma, Sleep Apnea, Hypercholesterolemia, Acid Reflux, Afib, Mitral Valve, IBS, Hemorrhoids, Premature Valve Insufficiency, Chronic Obstructive Pulmonary Disease (COPD) benign prostatic hyperplasia - history of benign prostatic hyperplasia History of constipation Accidents: None Surgical Hx: Appendectomy - A CHILD Hip Replacement LT - (2018) [facility] Bilat CTR - (2019) L4-5 (bilateral) Transforaminal Epidural Steroid Injection - (10/30/2020) JLW @ [facility] Lumbar Fusion - (07/24/2021) L4-L5--[facility] Anesthesia Complications: None Assistive Devices: Cpap, Dentures Reviewed and updated. SOCIAL HISTORY: Social History: Marital: .Occupation: Retired.Work Status: Retired.Hand Dominance: Right- handed. Personal Habits:? Tobacco Use: Patient is a current smoker, smokes every day - CIGAR .Cigarette Use: Cigar - OCCASIONALLY.Smokeless Tobacco: Former user.E-Cigarette Use: Never used.Alcohol: Daily.Drug Use: Denies Use.Enjoy Exercising: Daily. Reviewed and updated. VITALS: Ht: 68 Wt: 212lb Wt k.163 BMI: 32.2 BP: 126/64 Pulse: 67 T: 97.3 T: 36.3C Pain Level: 7 O2SatR: 95 ALLERGIES: No Known Drug Allergy? MEDICATIONS: Aspir-81 81 mg 1 tab po daily, Montelukast Sodium 10 mg 1 by mouth every day, Triamterene/Hydrochlorothiazide 37.5-25 mg 1 po qdaily, Nifedipine ER Osmotic Release 60 mg 1 po qdaily, Valsartan 320 mg 1 po qdaily, Eliquis 5 mg 1 po bid, Rosuvastatin Calcium 5 mg 1 po qdaily, Metoprolol Succinate ER 25 mg 1 po qdaily, Tylenol Extra Strength 500 mg 2 by mouth every 8 hours prn, Azelastine HCL (Nasal) 0.1 % 2 sprays by nasal route 2 times daily, CVS D3 50 mcg (1999 [address]) daily, Ezetimibe 10 mg 1 by mouth every day, Pantoprazole Sodium 40 mg daily, Multi Vitamin? 1 by mouth every day, Nitroglycerin 0.4 mg prn PRE-OP EXAM:? General appearance:NORMAL? ? ? Other: Eyes: Conjunctivae and lids: NORMAL? Pupils: ERR Ears, Nose, Mouth, and Throat: NORMAL? Other: Inspection of lips, teeth and gums: NORMAL? ?Other: Neck: Examination of neck: no masses noted. Respiratory: Assessment of respiratory effort: NORMAL? ?Other: ?Auscultation of lungs: clear to auscultation no wheezes, rhonchi or rales. Cardiovascular:? Auscultation of heart: regular rate and rhythm, no murmurs, gallops or rubs. PHYSICAL EXAMINATION: Patient does walk with an antalgic gait.? Previous incision on the left hip is well-healed.? Patient has no tenderness to palpation over the greater trochanteric region.? Flexion 90, internal rotation 15, external rotation 25.? He has 3 mm longer leg on the left when compared to the right.? Negative seated bilateral straight leg raise.? Sensation intact to light touch. IMAGING STUDIES: Previous x-rays of the left hip in October 2022 do reveal lucency surrounding the acetabular cup and screw.? Femoral implant appears well fixed.? Previous bone scan also shows loosening of the acetabular component. IMPRESSION: 1.? Painful left total hip arthroplasty with loosening of the acetabular component 2.? Hypertension 3.? Asthma 4.? Sleep apnea 5.? Paroxysmal atrial fibrillation currently on Eliquis 6.? Chronic obstructive pulmonary disease 7.? Benign static hyperplasia 8.? History of constipation PLAN: Dr. Yousuf Ramirez did discuss and review with the patient all treatment options including surgical versus nonsurgical options.? Patient does wish to proceed with the above-stated procedure.? Potential risks, benefits, and complications of the procedure were discussed in detail including but not limited to , infection, nerve and blood vessel damage, persistent pain, numbness, tingling, paresthesias, blood clot, pulmonary embolism, and requirement for possible further surgery.? The patient expressed full understanding and has no further questions for the doctor.? Patient does agree to proceed with the above-stated procedure and has signed the surgery consent form. POST-OP MEDICATION PLAN: Pain Medications: Discussed postoperative course of treatment with medications in great detail.? Pain regimen will be Tylenol and oxycodone.? Due to patient's full dose of Eliquis 5 mg twice daily for atrial fibrillation will avoid nonsteroidal anti-inflammatories. DVT Prophylaxis: We are getting clearance and perioperative management from cardiology with regards to Eliquis.? We will resume this postoperative day #1. This dictation was created using voice recognition software. Phonetic and/or grammatical errors may exist. ___? I have re-examined the patient.? There are no clinical changes since date of exam. ___? See progress notes for changes. ___? Dictated on admission Date: ? ? ?Time: Signature:
[2023-04-29] VITALS (10 sets, daily range): BP systolic 88–160; BP diastolic 49–77; PULSE 51–78; RESP 12–18; TEMP 36.3–37.1; O2SAT 94–100; BMI 30.8; BMI 30.9
[2023-04-29] MEDS: Lactated Ringers 1,000 ML 999 ML IV ×2 (08:12→14:15)
[2023-04-29] MEDS: Magnesium 1 GM over 15 mins IV (08:13)
[2023-04-29] MEDS: Celecoxib 200 MG Capsule 400 MG PO (08:13)
[2023-04-29] MEDS: Acetaminophen 500 MG Tablet 1000 MG PO ×2 (08:14→20:45)
[2023-04-29] MEDS: Gabapentin 600 MG Tablet PO (08:14)
[2023-04-29 09:18] LABS: Bedside Glucose 136 mg/dL (74-106)
[2023-04-29] MEDS: Lactated Ringers 1,000 ML 75 ML IV (10:48)
[2023-04-29] MEDS: Cefazolin 2 GM in 0.9% Normal Saline (100mL Bag) 100 ML IV (11:08)
[2023-04-29] MEDS: dexAMETHasone 10 MG/ML Vial IV (11:20)
[2023-04-29] MEDS: Heparin 10,000 UNITS/10 ML Vial 10000 UNITS (11:26)
--- NOTE | 2023-04-29 12:45 | RAD_ITS ---
STUDY: X-RAY - PELVIS AND LEFT HIP REASON FOR EXAM: Male, 73 years old. Left total hip replacement. TECHNIQUE: 1 views of the pelvis and hip. COMPARISON: None. FINDINGS: Intraoperative imaging provided for left hip replacement. RAD/Hip 1 view with Pelvis IMPRESSION: Intraoperative imaging provided for left hip replacement. Electronically Signed: Christian Taylor MD at 14:23 EST ,
--- NOTE | 2023-04-29 13:11 | OP.PCM_ITS ---
Report of Operation Date of Procedure: 04/29/23 Pre-Operative Diagnosis: Failed left total replacement, aseptic loosening Post-Operative Diagnosis: Failed left total hip replacement, aseptic loosening Surgery/Procedure Performed:: Revision left total replacement femoral and acet abular components Description of Surgical Findings:: Gross loosening of the acetabular component. Femoral head was revised to dual mobility femoral head. Surgeon: Yousuf Ramirez cage tender: Mike Ybarra Type of Anesthesia: General Anesthesiologist: Mohit Palacios Special Medications: 2 g Ancef, 1 g TXA at incision, 1 g TXA closure, 10 mg Decadron, joint cocktail (5 mg Duramorph, 30 mL of 0.5% Ropivicaine, 1000 units of epinephrine, 30 mg of Toradol) Specimen's removed: 3 separate specimens were sent to microbiology Estimated Blood Loss (mL): 350 Fluids Replaced: 1500 mL crystalloid Description of Procedure: Components used: 1. Rumely cobalt-chromium MDM liner alpha code E 2. Rumely trident 2 acetabular shell size 52 mm with 2 screws placed in the safe zone 3. Rola X3 polyethylene 48/28 4. Rola Biolox delta 28mm, -2.7mm femoral head Brief history operative indications: 73 yo M who had a previous total hip replacement. X-rays were consistent with gross loosening of the acetabular component. X-rays revealed a stably fixed femoral component. There was some questionable findings around the femoral component on bone scan. Based on radiographs and patient's clinical picture it was determined that the need for complete femoral stem revision was unlikely we elected to proceed with revision to new acetabulum and dual mobility femoral head. Revision total hip replacement was discussed with the patient with risks and benefits including but not limited to blood loss, DVTs, PEs, neurovascular damage, dislocation, general risks of anesthesia including loss of life. Patient demonstrated an understanding medical clearance is obtained the patient was consented for surgery. Additionally we discussed the risk of fracture associated with revision surgery. Procedure: On the date of procedure the patient's L hip was marked in the preoperative area. Patient was then taken back to the operating room where anesthesia assumed control of the C-spine and airway and administered anesthetic. Patient was transferred to the operating table and placed in the supine position. The hips were placed at the break of the bed and a sacral bump was placed. The L lower extremity was then prepped out in a sterile fashion using chlorhexidine while the surgeon scrubbed. The PA was vital in the positioning of the patient. Upon reentering the room the L lower extremity was draped in the standard orthopedic fashion and the incision was marked. A timeout was called and everyone agreed upon the side, the site, the procedure be performed, antibody given, and patient's identity. At this time incision was made through skin using his previous surgical site incision and extending proximally distally, subcutaneous tissue, and fat down to fascia. The fascia was then incised and the TFL was retracted laterally. A retractor was placed on the lateral border of the femoral neck. At this time we carefully dissected through the previous area of scar tissue bed and identified the femoral stem. A retractor was then placed on the medial portion of the femoral neck. The anterior capsule was then cleared of all soft tissue and then H shaped capsulotomy was made. The retractors were then placed inside the capsule. We further completed a release and then did our synovectomy. This allowed dislocation of the hip. Hip was then dislocated with the assistance of my physician assistant art director and the bone tamp was used to dissociate the femoral head from the trunnion. Trunnion remained intact and appropriate. Femur was then retracted superiorly and posteriorly. Attention was then turned toward the acetabulum where the soft tissues were appropriately retracted and debrided. At this time with the screws still in place we took the short cuff tone blade and debrided around the edge. We then used an osteotome to dissociate the polyethylene component. Screwdriver was used to remove the screw. We then attached the impactor and were able to remove the cup which was grossly loose with no bony attachment. At this time we then examined the bone quality, and the acetabulum was sequentially reamed to 52 mm. The wound was then copiously irrigated out with 6 L of normal saline under low- pressure lavage and retractors were again placed exposing the acetabulum. A 52 mm cup was then selected and impacted into place. Live fluoroscopy was used to verify placement of the acetabular component. Once we are happy with this 2 screws were placed in the safe zone. MDM cobalt-chromium acetabular liner was impacted into place and locking mechanism was verified. The position of the acetabular cup was then verified under live fluoroscopy. Attention was then turned to the femur. Soft tissue releases on the medial and lateral femoral neck were appropriately done, the leg was externally rotated and lateralized. A Herzog retractor was placed medially and proximally to the greater trochanter this allowed appropriate visualization and exposure of the femoral trunnion. At this time, the previously selected head was trialed with a -2.7 mm neck. Traction was pulled and the hip was reduced with internal rotation. Once it was appropriately reduced and stability was checked. There was minimal shuck, equal leg lengths and appropriate stability with hyperextension and external rotation as well as with 90? flexion and internal rotation. Fluoroscopy was then also used to verify the position of the components and leg lengths using the contralateral side for comparison. The trial components were then dislocated the proximal femur was again exposed and the components were removed from the wound. The final components were verified and opened. The wound was copiously irrigated out with normal saline. The acetabulum was checked for any residual debris. The final components were placed and impacted. Traction and internal rotation were again used to reduce the hip. After adequate reduction the hip remained stable with appropriate leg lengths. The final components were once again checked with live fluoroscopy and were found to be satisfactory. The wound was then copiously irrigated with normal saline once more, and hemostasis was obtained. Closure was then done using #1 Vicryl runner to close the fascia. A 2-0 vicryl interuppted sutures were used to close the subcutaneous skin. Nylon sutures were used for final skin closure. A Silverlon dressing was placed. Patient was awakened by anesthesia and transferred to the [facility]. Patient was then transferred to the PACU for recovery. Postoperative plan: Patient will get 24 hours postop antibiotics. Patient will get in-house physical therapy and will be weight-bear as tolerated. Patient will follow up in office in 2 weeks for a wound check and x-rays. Patient will resume his regular Eliquis tomorrow. During the course of the procedure the physician production welding supervisor (PE) played a vital role. Their intimate knowledge of my steps in the procedure aided in safe and expedient completion of the procedure. The PE played a vital rolls in positioning particularly in obtaining the appropriate positioning of the sacral bump. The PE was also vital in the retraction of soft tissues during the exposure and especially the femoral work as this is a vital part of the procedure to prevent complications and fractures. The PE was also vital and protecting soft tissues during times of bony cuts and reaming. He also played a vital role in closure with my direct supervision. The PE was also important during reduction and dislocation of the joint and trials intraoperatively. Complications No intraoperative complications Admit VTE Documentation VTE Present on Admission: No VTE Mechan Device Prophylaxis: SCD's and Thigh High NORMA Hose VTE Pharm Prophylaxis ordered?: Yes
[2023-04-29] MEDS: JPS (Morphine 10mg/ml) OPERA.SITE (13:18)
[2023-04-29] MEDS: TRANEXAMIC ACID 2,000 MG, 0.9% Normal Saline (100mL Bag) 100 ML OPERA.SITE (13:20)
--- NOTE | 2023-04-29 14:10 | RAD_ITS ---
STUDY: X-RAY - PELVIS AND LEFT HIP REASON FOR EXAM: Male, 73 years old. Post Op -- AP both hips on single dorothy/lateral of op hip PACU TECHNIQUE: 2 views of the pelvis and hip. COMPARISON: None. FINDINGS: There is a non-specific bowel gas pattern. Normal visualized soft tissue structures. Status post left hip replacement. There is good alignment. Moderate degree of joint space scarring of the right hip joint. 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 RAD/Hip Min 2 Views (Portable) IMPRESSION: Status post left total hip replacement. There is good alignment. Electronically Signed: Christian Taylor MD at 14:47 EST ,
[2023-04-29] MEDS: Lactated Ringers 1,000 ML 125 ML IV (15:06)
--- NOTE | 2023-04-29 15:13 | PCM.PN.HOSP ---
Subjective Subjective 73-year-old male presents to the hospital for an elective left total hip revision. Surgery went well, no significant pain. Currently on 4 L nasal cannula as he still recovering from anesthesia, he does not wear oxygen at baseline Objective Data Objective Data Vital Signs: Vital Signs Temp Pulse Resp BP Pulse Ox O2 Del Method O2 Flow Rate 97.4 F L 72 16 117/65 100 Nasal Cannula 4 04/29/23 15:00 04/29/23 15:00 04/29/23 15:00 04/29/23 15:00 04/29/23 15:00 04/29/23 15:00 04/29/23 15:00 Oxygen Flow Rate (L/min) 4 Oxygen Delivery Method Nasal Cannula Weight: 209 lb Body Mass Index (BMI) 30.8 Intake & Output: Intake and Output for Last 24 Hours 04/28/23 04/29/23 04/30/23 03:59 03:59 03:59 Intake Total 2212 / 2212 Balance 2212 / 2212 Lab / Micro Data 04/20/23 08:20 04/20/23 08:20 Labs: Laboratory Results - last 24 hr 04/29/23 07:56: POC Glucose 136 H Micro: Microbiology 04/20/23 08:20 Swab (Method) Nasal Screen MRSA/MSSA - Final Radiography Diagnostic Testing: Radiology Impression Hip/Pelvis X-Ray 04/29/23 12:45 IMPRESSION: Intraoperative imaging provided for left hip replacement. Electronically Signed: Christian Taylor MD at 14:23 EST , Hip X-Ray 04/29/23 14:10 IMPRESSION: Status post left total hip replacement. There is good alignment. Electronically Signed: Christian Taylor MD at 14:47 EST , Physical Exam Narrative General: Alert, Oriented x3, little groggy, cooperative, No apparent distress HEENT: Atraumatic, PERRLA, EOMI, Normocephalic Oral: Moist Mucosa Neck: Supple, No JVD Lungs: Diminished, Normal air movement, No rhonchi, No wheeze, No rales Cardiovascular: Regular rate, Regular Rhythm, Normal S1, Normal S2, No murmurs Abdomen: Soft, Non Tender, Non-Distended, No Hepato-splenomegaly Extremities: No edema, Capillary Refill Less than 3 Seconds Skin: Dressing CDI Musculoskeletal: No Tenderness to Palpation of Joints or Extremities Neurological: Cranial nerves II-XII grossly intact, Motor Exam 5/5 strength throughout, Sensory exam intact to light touch and pain Psych/Mental Status: Normal Affect, Appropriate Assessment & Plan Assessment/Plan (1) History of revision of total replacement of left hip joint: PLAN: Plan 1. Status post revision of his left total hip replacement on 04/29/2023 ? Pain management per primary ? PT/OT ? Continue with Eliquis 2. HTN/HLD/A-fib ? Blood pressures are currently stable ? Continue with his home blood pressure medications and his cholesterol medications ? We will monitor and make adjustments as necessary ? Can resume Eliquis 3. GERD ? Stable ? Continue with PPI DVT: Eliquis Charges/Coding Visit Charges Office Visits / Consults: [id number] OV L3 New
[2023-04-29] MEDS: Cefazolin 1 GM/50 ML BAG IV (17:51)
[2023-04-29] MEDS: Ensure Surgery 237 ML LIQUID PO (17:51)
[2023-04-29] MEDS: Rosuvastatin Calcium 5 MG Tablet PO (20:45)
[2023-04-29] MEDS: Montelukast 10 MG Tablet PO (20:45)
[2023-04-29] MEDS: Senna/Docusate Sodium 1 Tablet 2 TABLET PO (20:45)
[2023-04-30 00:21] VITALS: BP 134/79; PULSE 70; RESP 18; TEMP 36.7; O2SAT 97
--- NOTE | 2023-04-30 00:45 | CPS ---
Patient asleep at this time
[2023-04-30 01:45] VITALS: PULSE 70; O2SAT 95
[2023-04-30 03:36] VITALS: BMI 30.9
[2023-04-30] MEDS: Cefazolin 1 GM/50 ML BAG IV (04:26)
[2023-04-30 04:33] VITALS: BP 151/70; PULSE 73; RESP 20; TEMP 36.4; O2SAT 98
[2023-04-30] MEDS: Acetaminophen 500 MG Tablet 1000 MG PO ×3 (04:50→21:41)
[2023-04-30 07:36] VITALS: BMI 30.9
[2023-04-30 07:56] LABS: Hematocrit 37.6 % (40-54); Hemoglobin 12.7 g/dL (13.0-16.5); Mean Corp Hgb Conc 33.8 g/dL (32-36); Mean Corpuscular Hgb 31.2 pg (27.0-32.0); Mean Corpuscular Volume 92.4 fL (80-94); Mean Platelet Vol. 9.9 fl (6.2-12.0); Platelet Count 245 K/mm3 (150-450); RBC Distribution Width CV 13.1 % (11.6-14.6); RBC Distribution Width SD 44.4 fl (35.1-43.9); Red Blood Count 4.07 M/mm3 (4.6-6.2); White Blood Count 15.5 K/mm3 (4.4-11.0)
[2023-04-30 08:00] VITALS: BP 151/80; PULSE 70; RESP 14; TEMP 36.9; O2SAT 99
[2023-04-30 08:03] VITALS: PULSE 70
[2023-04-30] MEDS: NIFEdipine 60 MG Tablet PO (08:03)
[2023-04-30] MEDS: Metoprolol(XL)Succ 25 MG Tablet PO (08:03)
[2023-04-30] MEDS: Senna/Docusate Sodium 1 Tablet 2 TABLET PO ×2 (08:03→21:42)
[2023-04-30] MEDS: Ezetimibe 10 MG Tablet PO (08:03)
[2023-04-30] MEDS: Losartan Potassium 100 MG Tablet PO (08:04)
[2023-04-30] MEDS: Pantoprazole Sodium 40 MG Tablet PO (08:04)
[2023-04-30] MEDS: Aspirin 81 MG TAB.CHEW PO (08:04)
[2023-04-30] MEDS: Famotidine 20 MG Tablet PO (08:04)
[2023-04-30] MEDS: Doxycycline 100 MG CAPSULE PO ×2 (08:04→21:41)
[2023-04-30] MEDS: APIXABAN 5 MG TABLET PO ×2 (08:04→21:42)
[2023-04-30] MEDS: Multivitamins,Therapeutic Tablet 1 TABLET PO (08:04)
[2023-04-30] MEDS: Triamterene 37.5MG/Hctz 25MG Capsule 1 CAP PO (08:04)
[2023-04-30] MEDS: Ensure Surgery 237 ML LIQUID PO ×2 (08:11→10:59)
[2023-04-30 08:30] LABS: Anion Gap 7 (5-15); BUN 21 mg/dL (7-18); BUN/Creat Ratio 21.7 RATIO (10-20); Calcium,Total 8.6 mg/dL (8.5-10.1); Chloride 107 mmol/L (98-107); Creatinine, Serum 0.97 mg/dL (0.70-1.30); EST Glomerular Filtration Rate 81 mL/min (>60); Est Glom Filt Rate - Afr Amer 98 mL/min (>60); Estimated Creatinine Clearance 67.83 ml/min; Glucose 118 mg/dL (74-106); Potassium 4.2 mmol/L (3.5-5.1); Sodium Level 137 mmol/L (136-145)
--- NOTE | 2023-04-30 09:35 | PN.ORTHO_ITS ---
Subjective Subjective The patient was sitting in bed upon examination. Patient denies any chest pain, shortness of breath, dizziness, lightheadedness, nausea or vomiting, or calf pain. Pain is controlled on medications. No adverse overnight events. Patient states he did cough and had increased pain in the postoperative left hip. Ph ysical therapy has yet to work with him today. He has been up to the bathroom. Pain has been controlled on medications. Patient is resuming his Eliquis today. Objective Data Objective Data Vital Signs: Vital Signs Temp Pulse Resp BP Pulse Ox O2 Del Method O2 Flow Rate 97.5 F L 70 20 H 151/70 H 98 Room Air 4 04/30/23 04:33 04/30/23 08:03 04/30/23 04:33 04/30/23 04:33 04/30/23 04:33 04/30/23 04:33 04/29/23 15:36 Oxygen Flow Rate (L/min) 4 Oxygen Delivery Method Room Air Weight: 94.801 kg Body Mass Index (BMI) 30.8 Intake & Output: Intake and Output for Last 24 Hours 04/28/23 04/29/23 04/30/23 23:59 23:59 23:59 Intake Total 3962 / 4262 1350 / 1350 Balance 3962 / 4262 1350 / 1350 Lab / Micro Data 04/30/23 07:30 04/30/23 07:30 Labs: Laboratory Results - last 24 hr 04/30/23 07:30: WBC 15.5 H, RBC 4.07 L, Hgb 12.7 L, Hct 37.6 L, MCV 92.4, MCH 31.2, MCHC 33.8, RDW Std Deviation 44.4 H, RDW Coeff of Rafi 13.1, Plt Count 245, MPV 9.9, Sodium 137, Potassium 4.2, Chloride 107, Carbon Dioxide 23.0, Anion Gap 7, BUN 21 H, Creatinine 0.97, Estim Creat Clear Calc 67.83, Est GFR (MDRD) Af Amer 98, Est GFR (MDRD) Non-Af 81, BUN/Creatinine Ratio 21.7 H, Glucose 118 H, Calcium 8.6 Micro: Microbiology 04/20/23 08:20 Swab (Method) Nasal Screen MRSA/MSSA - Final Radiography Diagnostic Testing: Radiology Impression Hip/Pelvis X-Ray 04/29/23 12:45 IMPRESSION: Intraoperative imaging provided for left hip replacement. Electronically Signed: Christian Taylor MD at 14:23 EST , Hip X-Ray 04/29/23 14:10 IMPRESSION: Status post left total hip replacement. There is good alignment. Electronically Signed: Christian Taylor MD at 14:47 EST , Physical Exam Narrative Vital signs stable and afebrile. Mild elevation in blood pressure. Was using CPAP overnight SCDs and NORMA hose are in place bilaterally Patient is able to plantarflex and dorsiflex actively. Sensation is intact to light touch to saphenous, sural, superficial and deep peroneal, and tibial distribution. Dressing is clean dry and intact. Negative Homans bilaterally, negative signs and symptoms of DVT. Const alert, oriented x3 and no apparent distress Assessment & Plan Assessment/Plan (1) History of revision of total replacement of left hip joint: PLAN: 1. S/P left direct anterior revision total hip arthroplasty acetabular component and femoral head POD #1 2. Continue Pain Medications: Tylenol and oxycodone 3. DVT Prophylaxis: Patient will resume his Eliquis today as prescribed for his atrial fibrillation. This will cover him for DVT prophylaxis. 4. PT/OT: Weightbearing as tolerated with walker. Anterior hip precautions 5. H & H: 12.7/37.6, asymptomatic. Lab work has been reviewed and monitoring patient's hemoglobin and hematocrit postoperatively without any intra operative complications. At this time no treatment is required. 6. Reactive leukocytosis: Currently 15.5, afebrile. Patient did receive Decadron intraoperatively. No clinical signs of infection 8. Encouraged Incentive Spirometry 9. Currently on doxycycline for 2 weeks postoperatively. Microbiology wound and tissue specimens in chart are pending. I discussed with the patient potential side effects of doxycycline including sensitivity to the sunlight and increased risk of skin burn. Recommend patient take appropriate precautions. Also recommend patient to take probiotic while on the antibiotic. Patient voiced understanding agreement. 10. Continue postoperative medical management per medicine 11. Disposition: Plan will be for possible discharge home tomorrow as we are continuing to follow patient's cultures/Gram stain. They are currently pending. I would like patient to continue to work with physical therapy for discharge planning. He does have outpatient physical therapy established. If patient is medically stable tomorrow plan will be for discharge. We will repeat CBC tomorrow. We will also be monitoring and reviewing cultures/Gram stain's. I have reviewed the [place] Automated Rx Reporting System (OARRS) report for this patient for refill pattern and other prescriber involvement as part of the appropriate surveillance for the provision of acute and chronic controlled medi cations. The report was requested and reviewed on the date of this entry and was considered in the prescribing process. This dictation was created using voice recognition software. Phonetic and/or grammatical errors may exist.
--- NOTE | 2023-04-30 11:10 | CASEMGMT ---
Social Work SW met with pt to discuss advance directives.? Pt confirms he has completed a living will and health care POA naming his Shaina Jefferson.? Pt notified that documents are not on file at [facility] and SW requested they be brought in for scanning into the EMR.? ANASTACIO Vines
--- NOTE | 2023-04-30 15:03 | CASEMGMT ---
RN?CM?HUMAN RELATIONS TEACHER?CM?to room to meet with patient for initial transition planning/care coordination?assessment.?RN?CM?introduced self and role at [facility].? Pt voices understanding and consents to?assessment?at this time.? Pt resting in bed in no distress at this time.? Pt is A/O at this time and answers all questions appropriately.?? Care providers, pharmacy, and demographics verified/updated at this time. PCP: Dr Cisse Specialists: Dr Ramirez-ortho, Dr Morrison-LYNNETTE/Sherry, cardiology Preferred Pharmacy: [facility] Retail Insurance:[employer] Prescription Benefit:?Yes LNOK: , Shaina Living Arrangements: Lives w/ in 2-story home w/basement w/2 steps to enter. Denies difficulty w/steps @ baseline. Pt indep w/ADL's and manages his own medications. does home mgnt tasks. Transportation:?Pt states drives self and states no transportation concerns at this time.? also drives. DME: States has the following DME:?shower chair, RTS, cane, walker, CPAP, pulse ox. ?Pt states no need for further DME at this time.? HHC/SNF: No hx of either. Pt wishes to do OP therapy @ [facility] and has appt scheduled for 05/04. Pt wishes to return home and states has no concerns with going home at time of discharge.?CM?to follow for any discharge planning/needs.? Pt voices no further concerns/needs at this time.? Advised pt to ask for?CM?if any further questions/concerns/needs arise.? Voices understanding. PLAN:??Home w/OP therapy @ [facility]. Yvrose ALBERTN?RN?CM
[2023-04-30 15:36] VITALS: BP 127/71; PULSE 69; RESP 15; TEMP 36.9; O2SAT 99; BMI 30.9
--- NOTE | 2023-04-30 15:48 | PCM.HOSP.N ---
Hospitalist Note Patient feeling well today, was up ambulating in the halls and work with therapy. He has no other medical or physical complaints at this time, okay for DC from medical perspective once cleared to do so by primary
[2023-04-30] MEDS: Montelukast 10 MG Tablet PO (21:42)
[2023-04-30] MEDS: Rosuvastatin Calcium 5 MG Tablet PO (21:43)
[2023-05-01] MEDS: Acetaminophen 500 MG Tablet 1000 MG PO (05:15)
--- NOTE | 2023-05-01 06:44 | PN.ORTHO_ITS ---
Subjective Subjective The patient was sitting in bed upon examination. Patient denies any chest pain, shortness of breath, dizziness, lightheadedness, nausea or vomiting, or calf pain. Pain is controlled on medications. No adverse overnight events. Patient overall doing very well. He is only requiring Tylenol for pain control. He still complains of some anterior thigh soreness and stiffness. He has done well with physical therapy. Microbiology has been reviewed in which there has been no growth on Gram stain's and continuing to follow cultures. He is on doxycycline. Patient is wishing to be discharged home today. Objective Data Objective Data Vital Signs: Vital Signs Temp Pulse Resp BP Pulse Ox O2 Del Method O2 Flow Rate 98.4 F 69 15 127/71 H 99 Room Air 4 04/30/23 15:36 04/30/23 15:36 04/30/23 15:36 04/30/23 15:36 04/30/23 15:36 04/30/23 15:36 04/29/23 15:36 Oxygen Flow Rate (L/min) 4 Oxygen Delivery Method Room Air Weight: 94.801 kg Body Mass Index (BMI) 30.8 Intake & Output: Intake and Output for Last 24 Hours 04/29/23 04/30/23 05/01/23 23:59 23:59 23:59 Intake Total 3962 / 4262 1350 / 1350 Balance 3962 / 4262 1350 / 1350 Lab / Micro Data 04/30/23 07:30 04/30/23 07:30 Labs: Laboratory Results - last 24 hr 04/30/23 07:30: WBC 15.5 H, RBC 4.07 L, Hgb 12.7 L, Hct 37.6 L, MCV 92.4, MCH 31.2, MCHC 33.8, RDW Std Deviation 44.4 H, RDW Coeff of Rafi 13.1, Plt Count 245, MPV 9.9, Sodium 137, Potassium 4.2, Chloride 107, Carbon Dioxide 23.0, Anion Gap 7, BUN 21 H, Creatinine 0.97, Estim Creat Clear Calc 67.83, Est GFR (MDRD) Af Amer 98, Est GFR (MDRD) Non-Af 81, BUN/Creatinine Ratio 21.7 H, Glucose 118 H, Calcium 8.6 Micro: Microbiology 04/29/23 12:31 Tissue - Acetabular Membrane, Left Gram Stain - Final 04/29/23 12:31 Tissue - Acetabular Membrane, Left Wound Culture - Preliminary No growth-Final to follow 04/29/23 12:21 Tissue - Synovium Gram Stain - Final 04/29/23 12:21 Tissue - Syn[facility]ium Wound Culture - Preliminary No growth-Final to follow 04/29/23 11:54 Tissue - Synovium Gram Stain - Final 04/29/23 11:54 Tissue - Synovium Wound Culture - Preliminary No growth-Final to follow 04/20/23 08:20 Swab (Method) Nasal Screen MRSA/MSSA - Final Physical Exam Narrative Vital signs stable and afebrile. CPAP overnight SCDs and NORMA hose are in place bilaterally Patient is able to plantarflex and dorsiflex actively. Sensation is intact to light touch to saphenous, sural, superficial and deep peroneal, and tibial distribution. Trace drainage over the proximal one third of the dressing with remaining dressing clean dry and intact Negative Homans bilaterally, negative signs and symptoms of DVT. Const alert, oriented x3 and no apparent distress Assessment & Plan Assessment/Plan (1) History of revision of total replacement of left hip joint: PLAN: 1. S/P left direct anterior revision total hip arthroplasty acetabular component and femoral head POD #2 2. Continue Pain Medications: Tylenol and oxycodone 3. DVT Prophylaxis: Patient will resume his Eliquis today as prescribed for his atrial fibrillation. This will cover him for DVT prophylaxis. 4. PT/OT: Weightbearing as tolerated with walker. Anterior hip precautions. Patient was ambulating 190 feet with therapy yesterday. 5. H & H: Currently waiting on CBC for today, asymptomatic. Previous day lab work has been reviewed and monitoring patient's hemoglobin and hematocrit postoperatively without any intra operative complications. At this time no treatment is required. 6. Reactive leukocytosis: Yesterday 15.5, afebrile. Patient did receive Decadron intraoperatively. No clinical signs of infection 8. Encouraged Incentive Spirometry 9. Currently on doxycycline for 2 weeks postoperatively. Microbiology wound and tissue specimens were reviewed in chart and there is currently no growth or organisms seen today. I discussed with the patient potential side effects of doxycycline including sensitivity to the sunlight and increased risk of skin burn. Recommend patient take appropriate precautions. Also recommend patient to take probiotic while on the antibiotic. Patient voiced understanding agreement. 10. Continue postoperative medical management per medicine 11. Disposition: Overall patient has been doing well today. He is wishing to be discharged home today. He has tolerated physical therapy. Cultures have been reviewed and he will continue with the doxycycline for 2 weeks postoperatively. He was instructed that we will continue to follow these and if any changes he will be contacted on an outpatient basis. Patient is only required Tylenol for pain control. I am going to send him home with a very small amount of the oxycodone in case he would need something additionally over the weekend. He voiced understanding. He has not had a bowel movement but has been passing gas. We discussed if there is been no bowel movement by day 3 switching up stool softener using magnesium citrate. He would like his prescriptions E scribed to [facility] pharmacy. He will follow- up per postoperative instructions. He has outpatient physical therapy established. Upon discharge she will contact her office with any concerns or questions. I have reviewed the [place] Automated Rx Reporting System (OARRS) report for this patient for refill pattern and other prescriber involvement as part of the appropriate surveillance for the provision of acute and chronic controlled medications. The report was requested and reviewed on the date of this entry and was considered in the prescribing process. This dictation was created using voice recognition software. Phonetic and/or grammatical errors may exist.
--- NOTE | 2023-05-01 06:49 | DCINST_ITS ---
Discharge Instructions Diet Discharge Diet: No restrictions Activity Discharge Activity: May Not Drive (No driving until you can walk 100 feet with the use of a cane and off all narcotics) May shower in (days): 1 (only if incision is dry and without drainage. Do NOT soak/submerge in tub/pool/jorge/stream/hot tub.)) Ice area for (Minutes): 20 (Every 1-2 hours [address] barrier between ice and skin.) Weight Bearing Status: Weight bearing as tolerated Keep extremity elevated above heart level: Operative Extremity Additional Activity Instructions:: Follow [facility] Post-op Instructions. Once postoperative dressing has been removed only use gentle soap and water over the incision. Do not use any ointments, Neosporin, salves, alcohol pads over the incision for 6 weeks postoperatively. Do not submerge underwater for 6 weeks postoperatively. Wear elastic stockings for 2 weeks. Do NOT use alcohol with narcotic pain medication. Do NOT make important decisions while taking narcotic medication. If you have problems with taking your medication (rash, itching, nausea, etc.) call the office at once. Dressing / Incision Call your doctor if your incision/area has: Continuous Slow Oozing, Sudden Increased Bleeding, Increased Pain/ Swelling, Increased Redness and Foul Smelling Discharge Call your doctor if you observe: Fever of 101 or Higher, Shortness of breath, Chest pain, Calf discomfort and Uncontrolled pain Remove Dressing in: 3 days (Remove dressing on May 04, 2023) Additional Dressing/Incision Instructions:: Follow [facility] Post-op Instructions. Once postoperative dressing has been removed, only use gentle soap and water over the incision. Do not use any ointments, Neosporin, salves, alcohol pads over the incision for 6 weeks postoperatively. Do not submerge underwater for 6 weeks postoperatively. Continue with NORMA hose/elastic stockings for 2 weeks postoperatively. May remove at nighttime but needs to be placed back on the leg during the day. Do NOT use alcohol with narcotic pain medication. Do NOT make important decisions while taking narcotic medication. If you have problems with taking your medication (rash, itching, nausea, etc.) call the office at once. Follow Up Care Test Results: Test results from this visit will be discussed in further detail at your follow- up appointment, if applicable. Discharge Plan Admission Admit Date/Time: 04/29/23 07:23 Attending Provider: Yousuf Ramirez Primary Care Provider: Les Cisse Consulting Providers: Vincenzo Faye; Mony Tee; Mony Varela; Natalia Chakraborty Discharge Orders/Prescriptions Prescriptions: New acetaminophen 500 mg Tablet 1,000 mg PO Q8 14 Days Qty: 84 0RF Rx Instructions: Do not take more than 3000 mg Tylenol in a 24-hour period. doxycycline monohydrate 100 mg Capsule 100 mg PO BID 13 Days Qty: 26 0RF Rx Instructions: Take for 2 weeks postoperatively oxycodone 5 mg Tablet 5 - 10 mg PO Q4H PRN PRN (Reason: Pain Score 4-10) 2 Days Qty: 8 0RF sennosides-docusate sodium [Stool Softener-Stimulant Laxat] 8.6-50 mg Tablet 2 tab PO BID 3 Days Qty: 12 0RF Rx Instructions: Take until first bowel movement, then as needed Continued albuterol sulfate 90 mcg/actuation HFA aerosol inhaler 2 inh INHALATION Q4H PRN (Reason: Sob &/Or Wheezing) 17 Days Qty: 18 Patient Comments: inhale two puffs into the lungs as instructed every 4 hours as needed. multivitamin Tablet 1 tab PO DAILY montelukast 10 MG tablet 10 mg PO QHS valsartan 320 MG tablet 320 mg PO DAILY Patient Comments: Take 1 tablet by mouth once daily. aspirin 81 MG tablet,chewable 81 mg PO DAILY@0800 triamterene-hydrochlorothiazid 37.5-25 mg tablet 1 tab PO DAILY Eliquis 5 mg Tablet 5 mg PO BID fluticasone propionate 50 mcg/actuation [place],Suspension 1 spray NASAL BID PRN PRN (Reason: nasal congestion) Qty: 0 0RF rosuvastatin [Crestor] 5 mg tablet 5 mg PO QHS metoprolol succinate [Toprol XL] 25 mg tablet extended release 24 hr 25 mg PO DAILY nifedipine [Procardia XL] 60 mg tablet extended release 24hr 60 mg PO DAILY ezetimibe [Zetia] 10 mg tablet 10 mg PO DAILY pantoprazole [Protonix] [address] for susp in packet 40 mg PO DAILY Referrals / Follow Up: Physical,Therapy [Other] - 05/04/23 11:00 am Les Cisse MD [Primary Care Provider] - Suri Chaudhari PA [Med Staff - Adv Practice Prof] - 05/13/23 3:30 am Disposition Disposition (needs filled in before D/C Order can be placed): Home, Self Care
[2023-05-01 06:50] LABS: Hematocrit 33.9 % (40-54); Hemoglobin 10.9 g/dL (13.0-16.5); Mean Corp Hgb Conc 32.2 g/dL (32-36); Mean Corpuscular Hgb 30.3 pg (27.0-32.0); Mean Corpuscular Volume 94.2 fL (80-94); Mean Platelet Vol. 10.4 fl (6.2-12.0); Platelet Count 205 K/mm3 (150-450); RBC Distribution Width CV 13.4 % (11.6-14.6); RBC Distribution Width SD 46.6 fl (35.1-43.9); White Blood Count 8.5 K/mm3 (4.4-11.0)
[2023-05-01 09:10] VITALS: BP 138/65; PULSE 63; RESP 18; TEMP 37.2; O2SAT 99
[2023-05-01 09:13] VITALS: PULSE 63
[2023-05-01] MEDS: Pantoprazole Sodium 40 MG Tablet PO (09:13)
[2023-05-01] MEDS: Aspirin 81 MG TAB.CHEW PO (09:13)
[2023-05-01] MEDS: Metoprolol(XL)Succ 25 MG Tablet PO (09:13)
[2023-05-01] MEDS: Doxycycline 100 MG CAPSULE PO (09:13)
[2023-05-01] MEDS: Losartan Potassium 100 MG Tablet PO (09:13)
[2023-05-01] MEDS: NIFEdipine 60 MG Tablet PO (09:14)
[2023-05-01] MEDS: Ezetimibe 10 MG Tablet PO (09:14)
[2023-05-01] MEDS: APIXABAN 5 MG TABLET PO (09:14)
[2023-05-01] MEDS: Multivitamins,Therapeutic Tablet 1 TABLET PO (09:14)
[2023-05-01] MEDS: Triamterene 37.5MG/Hctz 25MG Capsule 1 CAP PO (09:14)
[2023-05-01] MEDS: Famotidine 20 MG Tablet PO (09:14)
--- NOTE | 2023-05-01 10:02 | PHA.DC.MC.R ---
Pharmacy [facility] has performed discharge medication reconciliation and counseling for this patient. The patient's discharge medication list was reviewed for discrepancies and discrepancies were resolved. The patient was counseled on the following discharge medications and changes in medications for homegoing were reviewed. The Reason for Use, instructions for use, and potential side effects were reviewed for all new medications. The patient's questions regarding all of their medications were answered. 1. Acetaminophen 1000 mg PO Q8H 2. Oxycodone 5-10 mg PO Q4H PRN pain 3. Doxycycline 100 mg PO BID 4. Senna/docusate 2 tablets PO BID until BM then PRN The patient was able to verbally demonstrate an understanding of their discharge medications. Medications at Discharge Home Medications montelukast 10 mg tablet 10 mg PO QHS ASTHMA 06/13/13 aspirin 81 mg chewable tablet 81 mg PO DAILY@0800 preventative 02/18/17 valsartan 320 mg tablet 320 mg PO DAILY hypertension 02/18/17 albuterol sulfate 90 mcg/actuation aerosol inhaler 2 inh inhalation Q4H PRN Sob &/Or Wheezing 17 days #18 grams 08/26/17 multivitamin 1 tab PO DAILY SUPPLEM 03/13/20 apixaban 5 mg tablet (Eliquis) 5 mg PO BID BLOOD THINNER 10/17/22 triamterene 37.5 mg-hydrochlorothiazide 25 mg tablet 1 tab PO DAILY HTN 10/17/22 fluticasone propionate 50 mcg/actuation nasal spray,suspension 1 spray NASAL BID PRN PRN nasal congestion #0 grams 10/18/22 ezetimibe 10 mg tablet (Zetia) 10 mg PO DAILY HLD 04/06/23 metoprolol succinate 25 mg tablet,extended release 24 hr (Toprol XL) 25 mg PO DAILY HEART RATE 04/06/23 nifedipine 60 mg tablet,extended release 24 hr (Procardia XL) 60 mg PO DAILY HEART RATE 04/06/23 pantoprazole 40 mg granules delayed-release for susp in packet (Protonix) 40 mg PO DAILY GERD 04/06/23 rosuvastatin 5 mg tablet (Crestor) 5 mg PO QHS HLD 04/06/23 acetaminophen 500 mg tablet 1,000 mg (2 x 500 mg) PO Q8 14 days #84 tabs 05/01/23 doxycycline monohydrate 100 mg capsule 100 mg PO BID 13 days #26 caps 05/01/23 oxycodone 5 mg tablet 5 - 10 mg (1 - 2 x 5 mg) PO Q4H PRN PRN Pain Score 4-10 2 days #8 tabs 05/01/23 sennosides 8.6 mg-docusate sodium 50 mg tablet (Stool Softener-Stimulant Laxative) 2 tab PO BID 3 days #12 tabs 05/01/23
== END 2023-05-01 10:44 | disposition home or self-care (01) | DRG 468 ==
LOC: ACINP 07:24 → MS3 04-30 06:54
PROVIDERS: Anesthesiology; Physician Assistant Surgical; Admitting Provider Specialist; PCP Family Medicine; Referring Provider Specialist; Visit Provider Specialist
PROC: 0SRB02Z Replacement of Left Hip Joint with Metal on Polyethylene Synthetic Substitute, Open Approach (ICD-10-PCS; principal; 2023-04-29 09:35)
DX: T84.031A Mechanical loosening of internal left hip prosthetic joint, initial encounter (principal); T84.84XA Pain due to internal orthopedic prosthetic devices, implants and grafts, initial encounter; J44.9 Chronic obstructive pulmonary disease, unspecified; I48.0 Paroxysmal atrial fibrillation; I10 Essential (primary) hypertension; E78.00 Pure hypercholesterolemia, unspecified; K58.9 Irritable bowel syndrome, unspecified; G47.30 Sleep apnea, unspecified; K21.9 Gastro-esophageal reflux disease without esophagitis; F17.290 Nicotine dependence, other tobacco product, uncomplicated; Y79.2 Prosthetic and other implants, materials and accessory orthopedic devices associated with adverse incidents; Z79.01 Long term (current) use of anticoagulants; Z79.82 Long term (current) use of aspirin; Z79.899 Other long term (current) drug therapy; Z96.642 Presence of left artificial hip joint
CPT/HCPCS: 36415; 73501; 73502; 76000; 80048; 82040; 82962; 83735; 85025; 85027; 86850; 86900; 86901; 87015; 87070; 87075; 87081; 87102; 87116; 87205; 87206; 94668; 97116; 97162; 97166; 97530; 99252; C1776; J7120; G0463; J2405; J3475